=== PATIENT | male | born 1955 | race American Indian/Alaskan Native ===

== ENCOUNTER 2019-07-01 04:26 | Inpatient (IN) | payer BC ==
[2019-07-01] MEDS ORDERED: ASPIRIN PO ONE (04:35)
[2019-07-01] MEDS ORDERED: NITRO-BID 2% TP ONE (04:35)
[2019-07-01 04:55] LABS: Basophils # (Auto) 0.1 K/mm3 (0.0-0.1); Basophils % (Auto) 1.2 % (0.0-1.8); Eosinophils % (Auto) 0.5 % (0.0-4.3); Hematocrit 41.9 % (35.5-45.6); Hemoglobin 14.8 gm/dl (11.8-15.2); Lymphocytes # (Auto) 3.6 K/mm3 (1.2-5.4); Lymphocytes % (Auto) 49.3 % (13.4-35.0); Mean Corpuscular HGB Conc 35 % (32-34); Mean Corpuscular Volume 88 fl (84-94); Monocytes # (Auto) 0.6 K/mm3 (0.0-0.8); Monocytes % (Auto) 8.3 % (0.0-7.3); Platelet Count 154 K/mm3 (140-440); Red Blood Count 4.78 M/mm3 (3.65-5.03); Red Cell Distribution Width 12.9 % (13.2-15.2)
[2019-07-01 05:08] LABS: INR 1.65 (0.87-1.13)
[2019-07-01 05:09] LABS: Partial Thromboplastin Time 28.2 Sec. (24.2-36.6)
[2019-07-01 05:18] LABS: BUN/Creatinine Ratio 19; Blood Urea Nitrogen 26 mg/dL (9-20); Calcium 8.7 mg/dL (8.4-10.2); Hemolysis Index 4
--- NOTE | 2019-07-01 05:25 | Emergency Department Report ---
ED Chest Pain HPI - General Chief Complaint: Chest Pain Stated Complaint: CHEST PAIN Time Seen by Provider: 07/01/19 04:35 Source: patient, EMS Mode of arrival: Stretcher Limitations: No Limitations - History of Present Illness Initial Comments: Patient is a 64-year-old -Togolese male with past medical history of hypertension and diabetes as well as mental health issues who is presenting with chest pain. Patient currently is a patient at [facility] for suicidal ideations. Patient patient states that the pain has been present for the last several hours. Patient states the pain does not radiate. Pain is a heavy sensation in the mid chest with shortness of breath. Patient denies cough nausea vomiting diarrhea at this time. Severity scale (0 -10): 5 - Related Data Allergies Allergy/AdvReac Type Severity Reaction Status Date / Time No Known Allergies Allergy Unverified 07/01/19 04:43 Heart Score - HEART Score History: Moderately suspicious EKG: Non-specific Age: 45-65 Risk factors: 1-2 risk factors Troponin: < normal limit HEART Score: 4 ED Review of Systems ROS: Stated complaint: CHEST PAIN Other details as noted in HPI Comment: All other systems reviewed and negative ED Past Medical Hx - Past Medical History Previous Medical History?: Yes Hx Hypertension: Yes Hx Congestive Heart Failure: Yes Hx Diabetes: Yes Hx Psychiatric Treatment: Yes (DEPRESSION) - Surgical History Past Surgical History?: No - Social History Smoking Status: Current Some Day Smoker Substance Use Type: Alcohol ED Physical Exam - General Limitations: No Limitations General appearance: alert, in no apparent distress - Head Head exam: Present: atraumatic, normocephalic - Eye Eye exam: Present: normal appearance - ENT ENT exam: Present: mucous membranes moist - Neck Neck exam: Present: normal inspection - Respiratory Respiratory exam: Present: normal lung sounds bilaterally. Absent: respiratory distress, wheezes, rales, rhonchi - Cardiovascular Cardiovascular Exam: Present: regular rate, normal rhythm. Absent: systolic murmur, diastolic murmur, rubs, gallop - GI/Abdominal GI/Abdominal exam: Present: soft, normal bowel sounds. Absent: distended, tenderness, guarding, rebound - Rectal Rectal exam: Present: deferred - Extremities Exam Extremities exam: Present: normal inspection - Back Exam Back exam: Present: normal inspection - Neurological Exam Neurological exam: Present: alert, oriented X3 - Psychiatric Psychiatric exam: Present: normal affect, normal mood - Skin Skin exam: Present: warm, dry, intact, normal color. Absent: rash ED Course Vital Signs 07/01/19 07/01/19 07/01/19 04:40 04:43 04:51 Temperature 99.1 F Pulse Rate 99 H 98 H Respiratory 12 12 Rate Blood Pressure 160/89 160/87 O2 Sat by Pulse 98 98 Oximetry BRITNEY score - Britney Score Age > 65: (0) No Aspirin use within the Past 7 Days: (0) No 3 or more CAD Risk Factors: (0) No 2 or more Angina events in past 24 hrs: (1) Yes Known CAD with more than 50% Stenosis: (0) No Elevated Cardiac Markers: (0) No ST Deviation Greater than 0.5mm: (0) No BRITNEY Score: 1 ED Medical Decision Making - Lab Data Result diagrams: 07/01/19 04:44 07/01/19 04:44 Lab Results 07/01/19 07/01/19 07/01/19 Range/Units 04:44 04:44 04:44 WBC 7.2 (4.5-11.0) K/mm3 RBC 4.78 (3.65-5.03) M/mm3 Hgb 14.8 (11.8-15.2) gm/dl Hct 41.9 (35.5-45.6) % MCV 88 (84-94) fl MCH 31 (28-32) pg MCHC 35 H (32-34) % RDW 12.9 L (13.2-15.2) % Plt Count 154 (140-440) K/mm3 Lymph % (Auto) 49.3 H (13.4-35.0) % [place] % (Auto) 8.3 H (0.0-7.3) % Eos % (Auto) 0.5 (0.0-4.3) % Baso % (Auto) 1.2 (0.0-1.8) % Lymph # 3.6 (1.2-5.4) K/mm3 [place] # 0.6 (0.0-0.8) K/mm3 Eos # 0.0 (0.0-0.4) K/mm3 Baso # 0.1 (0.0-0.1) K/mm3 Seg Neutrophils % 40.7 (40.0-70.0) % Seg Neutrophils # 2.9 (1.8-7.7) K/mm3 PT 19.1 H (12.2-14.9) Sec. INR 1.65 H (0.87-1.13) APTT 28.2 (24.2-36.6) Sec. Sodium 138 (137-145) mmol/L Potassium 3.4 L (3.6-5.0) mmol/L Chloride 96.7 L (98-107) mmol/L Carbon Dioxide 24 (22-30) mmol/L Anion Gap 21 mmol/L BUN 26 H (9-20) mg/dL Creatinine 1.4 (0.8-1.5) mg/dL Estimated GFR > 60 ml/min BUN/Creatinine Ratio 19 % Glucose 218 H (75-100) mg/dL Calcium 8.7 (8.4-10.2) mg/dL Troponin T < 0.010 (0.00-0.029) ng/mL - EKG Data -: EKG Interpreted by [place] EKG shows normal: sinus rhythm, axis, intervals, QRS complexes - EKG Data Interpretation: other (patient with T-wave inversions in lateral leads. Also evidence of LVH.) - Radiology Data Ordering Physician: GUICHO PILLAI MD Date of Service: 07/01/19 Procedure(s): XR chest routine 2V Accession Number(s): [id number] cc: GUICHO PILLAI MD Fluoro Time In Minutes: CHEST 2 VIEWS INDICATION / CLINICAL INFORMATION: CP. COMPARISON: None available. FINDINGS: SUPPORT DEVICES: None. HEART / MEDIASTINUM: No significant abnormality. LUNGS / PLEURA: No significant pulmonary or pleural abnormality. No pneumothorax. ADDITIONAL FINDINGS: Multiple old healed left posterior lateral rib fractures are noted. IMPRESSION: 1. No acute findings. Signer Name: Zach Sexton MD Signed: 07/01/2019 5:18 AM - Medical Decision Making Patient is a 64-year-old -Togolese male with past medical history hypertension diabetes who presented with chest pain. Patient has a heart school for. Patient also has some EKG changes which are concerning. No EKG for comparison here in our system. Patient will be admitted to the hospitalist service at this time for further cardiac risk stratification. Critical care attestation.: If time is entered above; I have spent that time in minutes in the direct care of this critically ill patient, excluding procedure time. ED Disposition Clinical Impression: Abnormal EKG Chest pain Qualifiers: Chest pain type: unspecified Qualified Code(s): R07.9 - Chest pain, unspecified Disposition: 09 OP ADMIT IP TO THIS HOSP Is pt being admited?: Yes Does the pt Need Aspirin: No Condition: Stable Instructions: Chest Pain (ED) Time of Disposition: 05:28
[2019-07-01] MEDS ORDERED: NITROSTAT SL PRN (06:07)
[2019-07-01] MEDS ORDERED: MORPHINE IV PRN (06:07)
[2019-07-01] MEDS ORDERED: ZOFRAN IV PRN (06:08)
[2019-07-01] MEDS ORDERED: TYLENOL PO PRN (06:08)
[2019-07-01] MEDS ORDERED: D50W (25GM) Syringe IV PRN (06:18)
[2019-07-01] MEDS ORDERED: KCL 10MEQ/100ML 10 MEQ/100 ML BAG IV ONE (06:19)
--- NOTE | 2019-07-01 06:33 | History and Physical Report ---
CHIEF COMPLAINT: Chest pain. HISTORY OF PRESENT ILLNESS: The patient is a 64-year-old male who said he has been having chest pain that appeared as tightness in the chest going on for some days. The patient is currently staying at [facility] because of psychiatric illness with suicidal ideation. Chest pain does not radiate and is associated with shortness of breath, but no diaphoresis and no nausea or vomiting. Pain is relieved with pain medication. There is no history of fever or chills and no history of cough. PAST MEDICAL HISTORY: Pertinent for hypertension, diabetes mellitus, congestive heart failure, depression and suicidal ideation. PAST SURGICAL HISTORY: Unremarkable. FAMILY HISTORY: Pertinent for coronary artery disease in the brother. SOCIAL HISTORY: The patient smokes cigarettes, drinks alcohol and does not use illicit drug. MEDICATIONS: The patient's home medications are not known at this time. ALLERGIES: There are no known drug allergies. REVIEW OF SYSTEMS: CONSTITUTIONAL: There is no fever, no chills, no diaphoresis. HEENT: There is no headache or sore throat. CARDIOVASCULAR SYSTEM: Chest pain is present. No orthopnea. RESPIRATORY SYSTEM: Shortness of breath is present. No cough. GASTROINTESTINAL SYSTEM: There is no nausea, no vomiting, no abdominal pain, diarrhea or constipation. NEUROLOGICAL SYSTEM: There is no numbness, no dizziness, no altered mental status. MUSCULOSKELETAL SYSTEM: There is no joint pain or swelling. DERMATOLOGICAL SYSTEM: There is no skin rash or itching. GENITOURINARY SYSTEM: There is no dysuria, hematuria, or flank pain. Rest of system review is normal. PHYSICAL EXAMINATION: GENERAL: At the time of exam, the patient was found to be alert, oriented x 3 and not in acute distress. VITAL SIGNS: At the initial time of presentation showed temperature of 99.1 degrees Fahrenheit, pulse of 99, respirations 12, blood pressure 160/89, O2 sat of 98% on room air. HEENT: Showed pupils to be equal, round, reactive to light and accommodating. Extraocular muscles are intact. NECK: Supple with no JVD or carotid bruit. CARDIOVASCULAR SYSTEM: Showed normal first and second heart sounds with no gallops or murmurs. RESPIRATORY SYSTEM: Showed good air entry on both sides of the lungs with no abnormal breath sounds. GASTROINTESTINAL SYSTEM: Show abdomen to be full, soft, nontender with no organomegaly or rigidity. NEUROLOGIC: Shows no focal deficit. MUSCULOSKELETAL SYSTEM: Show no joint swelling or tenderness. DERMATOLOGICAL: Showed no skin rash. GENITOURINARY SYSTEM: Showing no costovertebral angle tenderness. PERTINENT LABORATORY AND IMAGING STUDIES: The patient had chest x-ray done that shows no acute cardiopulmonary lesion. The patient's lab results showed CBC with normal white count, normal hemoglobin and normal hematocrit with CBC differential showing elevated lymphocyte count of 49.3% and elevated monocyte count of 8.3%. The patient's coagulation studies show high INR of 1.65 with elevated PT of 19.1 and the patient's chemistry shows slightly decreased potassium level of 3.4 with low chloride of 96.7 with normal sodium level and elevated glucose level of 218. The patient's troponin level was unremarkable. DIAGNOSES: 1. Chest pain. 2. Hyperglycemia. 3. Hypokalemia. PLAN OF CARE: 1. The patient will be placed on observation on telemetry. 2. The patient will have serial cardiac enzyme involving troponin, total CK, and CK-MB checked every 6 hours for 2 more levels. 3. The patient will be n.p.o. for Lexiscan stress test this morning. 4. The patient will be on IV morphine 2 mg every 3 hours as needed for pain and IV Zofran 4 mg every 8 hours for nausea and vomiting. 5. The patient will be on nitro paste half inch to anterior chest wall q.i.d. and will be on Nitrostat 0.4 mg sublingual every 5 minutes for breakthrough chest pain. 6. The patient will be on aspirin 325 mg by mouth daily and will be on Tylenol 650 mg by mouth every 4 hours for fever and headache. 7. The patient will be on oxygen by nasal cannula at 2 liters per minute. 8. The patient will be on Accu-Chek q.4 hours followed by low-dose sliding scale using regular insulin coverage. 9. The patient will have IV potassium chloride 10 mEq in 100 mL of normal saline given over 1 hour. JOB# [id number] OCN/NTS MTDD
[2019-07-01] MEDS: HumuLIN R SUB-Q SCH ×5 (07:16→22:58)
[2019-07-01] MEDS ORDERED: LEXISCAN IV ONE (08:11)
[2019-07-01] MEDS: NITRO-BID 2% TP SCH ×3 (11:07→18:21)
[2019-07-01] MEDS: ASPIRIN PO SCH (11:07)
--- NOTE | 2019-07-01 12:53 | Consultation ---
History of Present Illness Consult date: 07/01/19 Consult reason: chest pain, other History of present illness: Mr. Pereyra is a 64 y/o male who presented to [facility] with non-radiating, mid-sternal chest heaviness that lasted several hours. He is currently a patient at [facility] admitted with S/I. He is unknown to our practice and has a history of chronic HFrEF, nonischemic cardiomyopathy, hypertension, diabetes and mental health issues. He was evaluated at [facility] for similar symptoms in December 2017. Initial troponin negative and EKG unremarkable. A stress test was also negative, but showed an EF of 20 percent. His last echo in 2018 found an EF of 25% with grade 2 diastolic dysfunction, mild TR, mild pulmonic insufficiency, mild aortic insufficiency and a trivial pericardial effusion. Past History Past Medical History: GERD (nonischemic cardiomyopathy), hypertension, other (Suicidal ideation) Medications and Allergies Allergies Allergy/AdvReac Type Severity Reaction Status Date / Time No Known Allergies Allergy Verified 07/01/19 06:16 Home Medications Medication Instructions Recorded Confirmed Last Taken Type Aspirin [Adult Aspirin] 81 mg PO QDAY 07/01/19 07/01/19 Unknown History Carvedilol [Coreg] 25 mg PO BID 07/01/19 07/01/19 Unknown History Haloperidol Lactate 5 mg IM Q4HR PRN 07/01/19 07/01/19 Unknown History Haloperidol [Haldol] 5 mg PO Q4HR PRN 07/01/19 07/01/19 Unknown History ISOSORBIDE MONOnitrate [Imdur ER] 60 mg PO QDAY 07/01/19 07/01/19 Unknown History Insulin Detemir [Levemir VIAL] 10 unit SQ QHS 07/01/19 07/01/19 Unknown History Lisinopril [Zestril TAB] 40 mg PO QDAY 07/01/19 07/01/19 Unknown History Quetiapine Fumarate [SEROquel XR] 150 mg PO QHS 07/01/19 07/01/19 Unknown History Spironolactone [Aldactone] 25 mg PO QDAY 07/01/19 07/01/19 Unknown History Torsemide [Demadex] 40 mg PO QDAY 07/01/19 07/01/19 Unknown History amLODIPine [Norvasc] 10 mg PO DAILY 07/01/19 07/01/19 Unknown History diphenhydrAMINE [Benadryl CAP] 50 mg PO Q4HR PRN 07/01/19 07/01/19 Unknown History diphenhydrAMINE [Benadryl] 50 mg IV PRN PRN 07/01/19 07/01/19 Unknown History hydrALAZINE [Apresoline TAB] 100 mg PO TID 07/01/19 07/01/19 Unknown History Active Meds: Active Medications Acetaminophen (Tylenol) 650 mg PO Q4H PRN PRN Reason: Headache Aspirin (Aspirin) 325 mg PO QDAY [facility] Last Admin: 07/01/19 11:07 Dose: 325 mg Documented by: Dextrose (D50w (25gm) Syringe) 50 ml IV PRN PRN PRN Reason: Hypoglycemia Insulin Human Regular (Humulin R) 0 units SUB-Q Q4HR [facility]; Protocol Last Admin: 07/01/19 11:13 Dose: 2 units Documented by: Morphine Sulfate (Morphine) 2 mg IV Q3H PRN PRN Reason: Pain, Moderate (4-6) Nitroglycerin (Nitro-Bid 2%) 0.5 inch TP QIDNTG [facility]; Protocol Last Admin: 07/01/19 11:07 Dose: 0.5 inch Documented by: Nitroglycerin (Nitrostat) 0.4 mg SL .Q5MIN PRN PRN Reason: Chest Pain Ondansetron HCl (Zofran) 4 mg IV Q8H PRN PRN Reason: Nausea And Vomiting Review of Systems All systems: negative Cardiovascular: chest pain Physical Examination Vital Signs Temp Pulse Resp BP Pulse Ox 99.1 F 99 H 12 160/89 98 07/01/19 04:40 07/01/19 04:40 07/01/19 04:40 07/01/19 04:40 07/01/19 04:40 General appearance: no acute distress HEENT: Positive: PERRL Neck: Positive: neck supple Cardiac: Positive: Reg Rate and Rhythm Lungs: Positive: Normal Exam Neuro: Positive: Grossly Intact Abdomen: Positive: Unremarkable Male genitourinary: Positive: deferred Skin: Positive: Clear Musculoskeletal: No Pain Extremities: Present: normal Results 07/01/19 04:44 07/01/19 04:44 Coagulation 07/01/19 Range/Units 04:44 PT 19.1 H (12.2-14.9) Sec. INR 1.65 H (0.87-1.13) APTT 28.2 (24.2-36.6) Sec. CBC 07/01/19 Range/Units 04:44 WBC 7.2 (4.5-11.0) K/mm3 RBC 4.78 (3.65-5.03) M/mm3 Hgb 14.8 (11.8-15.2) gm/dl Hct 41.9 (35.5-45.6) % Plt Count 154 (140-440) K/mm3 Lymph # 3.6 (1.2-5.4) K/mm3 [place] # 0.6 (0.0-0.8) K/mm3 Eos # 0.0 (0.0-0.4) K/mm3 Baso # 0.1 (0.0-0.1) K/mm3 Comprehensive Metabolic Panel 07/01/19 Range/Units 04:44 Sodium 138 (137-145) mmol/L Potassium 3.4 L (3.6-5.0) mmol/L Chloride 96.7 L (98-107) mmol/L Carbon Dioxide 24 (22-30) mmol/L BUN 26 H (9-20) mg/dL Creatinine 1.4 (0.8-1.5) mg/dL Glucose 218 H (75-100) mg/dL Calcium 8.7 (8.4-10.2) mg/dL - Imaging and Cardiology Stress echo: report reviewed (07/01/19: negative for ischemia and infarction) Echo: report reviewed (2018: EF 25%, mild aortic insufficiency, grade 2 diastolic dysfunction, mild TR, mild MR, trivial pericardial effusion ) EKG interpretations - Telemetry EKG Rhythm: Sinus Rhythm Assessment and Plan Mr. Pereyra is a 64 y/o male admitted from [facility] with chest pain. He has a history of suicidal ideation, nonischemic cardiomyopathy, hypertension and mental health issues. Will repeat echocardiogram. Per [facility] notes, was previously on GDMT for HFrEF - will hold lisinopril and diuretics for now given renal insufficiency. Continue antihypertensives and anti-ischemic therapy. Further recommendations pending hospital course. The patient was evaluated by Dr. Lucy Stern. - Patient Problems (1) Chest pain Current Visit: Yes Status: Acute Qualifiers: Chest pain type: unspecified Qualified Code(s): R07.9 - Chest pain, unspecified (2) Hypertension Current Visit: Yes Status: Chronic (3) Chronic HFrEF (heart failure with reduced ejection fraction) Current Visit: Yes Status: Chronic (4) Cardiomyopathy, nonischemic Current Visit: Yes Status: Chronic (5) Suicidal ideations Current Visit: Yes Status: Acute (6) Diabetes mellitus Current Visit: Yes Status: Chronic
[2019-07-01] MEDS ORDERED: APRESOLINE IV PRN (12:56)
[2019-07-01] MEDS ORDERED: HALDOL IM NR (13:04)
[2019-07-01 13:15] LABS: Creatine Kinase MB 1.5 ng/mL (0.0-4.0)
--- NOTE | 2019-07-01 17:21 | Event Note ---
Date: 07/01/19 64-year-old gentleman was admitted today seen and evaluated. Reviewed his laboratory radiological data. Reconciled his medications. Continue with present medication in addition to continuing with his antipsychotic medication as well as diabetic medications. We'll obtain A1c. Commence patient on sliding scale insulin. Placed on consistent carbohydrate diet. Suicidal watch for his suicidal ideations.
[2019-07-01] MEDS ORDERED: NON-FORMULARY (Torsemide [Demadex] 40 MG) PO SCH (17:30)
[2019-07-01] MEDS ORDERED: HALFPRIN EC PO SCH (18:00)
[2019-07-01] MEDS ORDERED: NORVASC PO SCH (18:00)
[2019-07-01] MEDS: IMDUR PO SCH (18:30)
[2019-07-01 18:42] LABS: Creatine Kinase MB 2.2 ng/mL (0.0-4.0)
[2019-07-01] MEDS: ALDACTONE PO SCH (20:26)
[2019-07-01] MEDS: DEMADEX PO SCH (20:27)
[2019-07-01] MEDS: ZESTRIL PO SCH (20:27)
[2019-07-01] MEDS: APRESOLINE PO SCH (20:27)
[2019-07-01] MEDS ORDERED: INSULIN DETEMIR 10 UNIT SQ SCH (22:00)
[2019-07-01] MEDS ORDERED: NON-FORMULARY (Quetiapine Fumarate [Seroquel Xr] 150 MG) PO SCH (22:00)
[2019-07-01] MEDS: LANTUS SUB-Q SCH (22:57)
[2019-07-01] MEDS: COREG PO SCH (22:57)
--- NOTE | 2019-07-01 22:57 | Treadmill Report ---
NUCLEAR STRESS TEST PROTOCOL: The patient was brought to the stress lab in a postabsorptive state, given 10 mCi of technetium-99m at rest. The patient underwent rest imaging. The patient underwent Lexiscan stress test. At peak stress, the patient was given 26 mCi of technetium-99m. Shortly thereafter, the patient underwent stress imaging. Raw imaging reveals mild GI artifact, no significant motion artifact. SPECT imaging examined carefully in horizontal long axis, vertical long axis, and short axis views. Technically difficult study, but grossly no evidence of significant fixed or reversible perfusion defects suggestive of prior infarction or ischemia. Gated wall motion reveals severe global left ventricular hypokinesis with estimated ejection fraction of 20%. CONCLUSIONS: 1. Normal myocardial perfusion scan without evidence of active ischemia or prior infarction, but severe global left ventricular hypokinesis with estimated ejection fraction 20%. Clinical correlation suggested. JOB# [id number] LAMONT/LAURA
[2019-07-02] MEDS: HumuLIN R SUB-Q SCH ×5 (02:41→21:36)
[2019-07-02 05:55] LABS: Basophils % (Auto) 0.5 % (0.0-1.8); Eosinophils # (Auto) 0.1 K/mm3 (0.0-0.4); Eosinophils % (Auto) 0.6 % (0.0-4.3); Hematocrit 42.9 % (35.5-45.6); Lymphocytes % (Auto) 48.7 % (13.4-35.0); Mean Corpuscular HGB Conc 35 % (32-34); Mean Corpuscular Volume 88 fl (84-94); Monocytes # (Auto) 0.8 K/mm3 (0.0-0.8); Monocytes % (Auto) 9.2 % (0.0-7.3); Platelet Count 169 K/mm3 (140-440); Red Blood Count 4.85 M/mm3 (3.65-5.03); Red Cell Distribution Width 13.4 % (13.2-15.2)
[2019-07-02] MEDS: NITRO-BID 2% TP SCH ×4 (06:07→17:15)
[2019-07-02 06:19] LABS: Albumin 3.4 g/dL (3.9-5); Calcium 8.6 mg/dL (8.4-10.2)
[2019-07-02] MEDS ORDERED: K-DUR PO NR (07:54)
--- NOTE | 2019-07-02 07:59 | Discharge Summary ---
Providers - Providers Date of Admission: 07/01/19 07:51 Attending physician: JERZY LANDRY MD 07/02/19 07:56 Consult to Mental Health [CONS] Routine Reason For Exam: sucidal ideation Place consult to:: mental health Primary care physician: [employer] Hospitalization Condition: Stable Disposition: [id number] PSY HOSP/PSY UNIT Time spent for discharge: 35 mins Core Measure Documentation - Palliative Care Palliative Care/ Comfort Measures: Not Applicable Exam - Constitutional Vitals: Temp Pulse Resp BP Pulse Ox 98.8 F 68 16 136/98 98 07/02/19 05:09 07/02/19 06:07 07/02/19 05:09 07/02/19 06:07 07/02/19 05:09 Plan Activity: advance as tolerated, fall precautions Diet: low fat Special Instructions: record daily BP diary, smoking cessation Follow up with: PRIMARY CARE, [Primary Care Provider] - 3-5 Days
--- NOTE | 2019-07-02 08:01 | Progress Note ---
Assessment and Plan Assessment and plan: Patient is a 64-year-old -Mold[place] male with past medical history of hypertension and diabetes as well as mental health issues who is presenting with chest pain. Patient currently is a patient at [facility] for suicidal ideations. Patient patient states that the pain has been present for the last several hours. Patient states the pain does not radiate. Pain is a heavy sensation in the mid chest with shortness of breath. Patient denies cough nausea vomiting diarrhea at this time. Stress test was negative but noted to have low EF on echo Stress echo: report reviewed (07/01/19: negative for ischemia and infarction) Echo: report reviewed (2018: EF 25%, mild aortic insufficiency, grade 2 diastolic dysfunction, mild TR, mild MR, trivial pericardial effusion ) Atypical chest pain Hypokalemia Sinus [place] Suicidal ideation CKD 3 DM with hyperglycemia Acute on chronic Systolic Congestive heart failure Cardiomyopathy-Presume non ischemic Plan Continue supportive care Cardiology will like to observe for another day due to tachycardia Continue current home medications Adjust insulin for better control Dialy weight Obtain Psych consulted DVT/GI prophy History Interval history: Patient seen and examined, No new complaints. Hospitalist Physical - Constitutional Vitals: Temp Pulse Resp BP Pulse Ox 98.8 F 68 16 136/98 98 07/02/19 05:09 07/02/19 06:07 07/02/19 05:09 07/02/19 06:07 07/02/19 05:09 General appearance: Present: no acute distress, well-nourished - EENT Eyes: Present: PERRL, EOM intact, scleral icterus ENT: hearing intact - Neck Neck: Present: supple, normal ROM - Respiratory Respiratory effort: normal Respiratory: bilateral: CTA - Cardiovascular Rhythm: regular Heart Sounds: Present: S1 & S2 (tachycardia) - Extremities Extremities: no ischemia, pulses intact, pulses symmetrical, No edema, normal temperature, normal color, Full ROM Peripheral Pulses: within normal limits - Abdominal General gastrointestinal: soft, non-tender, non-distended, normal bowel sounds - Integumentary Integumentary: Present: clear, warm, dry - Psychiatric Psychiatric: appropriate mood/affect, memory intact, cooperative - Neurologic Neurologic: CNII-XII intact, moves all extremities - Allied Health Allied health notes reviewed: nursing Results - Labs CBC & Chem 7: 07/02/19 04:31 07/02/19 04:31 Labs: Laboratory Last Values WBC 8.3 K/mm3 (4.5-11.0) 07/02/19 04:31 RBC 4.85 M/mm3 (3.65-5.03) 07/02/19 04:31 Hgb 15.0 gm/dl (11.8-15.2) 07/02/19 04:31 Hct 42.9 % (35.5-45.6) 07/02/19 04:31 MCV 88 fl (84-94) 07/02/19 04:31 MCH 31 pg (28-32) 07/02/19 04:31 MCHC 35 % (32-34) H 07/02/19 04:31 RDW 13.4 % (13.2-15.2) 07/02/19 04:31 Plt Count 169 K/mm3 (140-440) 07/02/19 04:31 Lymph % (Auto) 48.7 % (13.4-35.0) H 07/02/19 04:31 [place] % (Auto) 9.2 % (0.0-7.3) H 07/02/19 04:31 Eos % (Auto) 0.6 % (0.0-4.3) 07/02/19 04:31 Baso % (Auto) 0.5 % (0.0-1.8) 07/02/19 04:31 Lymph # 4.0 K/mm3 (1.2-5.4) 07/02/19 04:31 [place] # 0.8 K/mm3 (0.0-0.8) 07/02/19 04:31 Eos # 0.1 K/mm3 (0.0-0.4) 07/02/19 04:31 Baso # 0.0 K/mm3 (0.0-0.1) 07/02/19 04:31 Seg Neutrophils % 41.0 % (40.0-70.0) 07/02/19 04:31 Seg Neutrophils # 3.4 K/mm3 (1.8-7.7) 07/02/19 04:31 PT 19.1 Sec. (12.2-14.9) H 07/01/19 04:44 INR 1.65 (0.87-1.13) H 07/01/19 04:44 APTT 28.2 Sec. (24.2-36.6) 07/01/19 04:44 Sodium 139 mmol/L (137-145) 07/02/19 04:31 Potassium 3.4 mmol/L (3.6-5.0) L 07/02/19 04:31 Chloride 96.6 mmol/L (98-107) L 07/02/19 04:31 Carbon Dioxide 30 mmol/L (22-30) 07/02/19 04:31 16 mmol/L 07/02/19 04:31 BUN 28 mg/dL (9-20) H 07/02/19 04:31 1.5 mg/dL (0.8-1.5) 07/02/19 04:31 Estimated GFR 57 ml/min 07/02/19 04:31 19 % 07/02/19 04:31 Glucose 191 mg/dL (75-100) H 07/02/19 04:31 POC Glucose 223 (70-105) H 07/01/19 21:43 Calcium 8.6 mg/dL (8.4-10.2) 07/02/19 04:31 0.50 mg/dL (0.1-1.2) 07/02/19 04:31 AST 35 units/L (5-40) 07/02/19 04:31 ALT 70 units/L (7-56) H 07/02/19 04:31 78 units/L (35-129) 07/02/19 04:31 133 units/L (55-170) 07/01/19 17:29 CK-MB (CK-2) 2.2 ng/mL (0.0-4.0) 07/01/19 17:29 CK-MB (CK-2) Rel Index 1.6 (0-4) 07/01/19 17:29 < 0.010 ng/mL (0.00-0.029) 07/01/19 17:29 6.5 g/dL (6.3-8.2) 07/02/19 04:31 3.4 g/dL (3.9-5) L 07/02/19 04:31 1.1 % 07/02/19 04:31 Active Medications - Current Medications Current Medications: Generic Name Dose Route Start Last Admin Trade Name Freq PRN Reason Stop Dose Admin Acetaminophen 650 mg 07/01/19 06:08 Tylenol PO Q4H PRN Headache Amlodipine Besylate 10 mg 07/02/19 10:00 Norvasc PO QDAY JAJA Aspirin 325 mg 07/01/19 10:00 07/01/19 11:07 Aspirin PO 325 mg QDAY JAJA Administration Carvedilol 25 mg 07/01/19 22:00 07/01/19 22:57 Coreg PO 25 mg BID JAJA Administration Dextrose 50 ml 07/01/19 06:18 D50w (25gm) Syringe IV PRN PRN Hypoglycemia Diphenhydramine HCl 50 mg 07/01/19 17:17 Benadryl IV PRN PRN Extrapyramidal Effects Haloperidol 5 mg 07/01/19 17:17 Haldol PO Q4HR PRN Agitation Hydralazine HCl 10 mg 07/01/19 12:56 07/01/19 18:20 Apresoline IV 10 mg Q6H PRN Administration Blood Pressure Hydralazine HCl 100 mg 07/01/19 20:00 07/01/19 20:27 Apresoline PO 100 mg TID [facility] Administration Insulin Glargine 10 units 07/01/19 22:00 07/01/19 22:57 Lantus SUB-Q 10 units QHS [facility] Administration Insulin Human Regular 0 units 07/02/19 07:30 Humulin R SUB-Q ACHS [facility] Protocol Isosorbide Mononitrate 60 mg 07/01/19 18:00 07/01/19 18:30 Imdur PO 60 mg QDAY [facility] Administration Lisinopril 40 mg 07/01/19 20:00 07/01/19 20:27 Zestril PO 40 mg QDAY [facility] Administration Miscellaneous Medication 150 mg 07/01/19 22:00 Quetiapine Fumarate [Seroquel Xr] PO QHS [facility] Morphine Sulfate 2 mg 07/01/19 06:07 Morphine IV Q3H PRN Pain, Moderate (4-6) Nitroglycerin 0.5 inch 07/01/19 10:00 07/02/19 06:07 Nitro-Bid 2% TP 0.5 inch QIDNTG [facility] Administration Protocol Nitroglycerin 0.4 mg 07/01/19 06:07 Nitrostat SL .Q5MIN PRN Chest Pain Ondansetron HCl 4 mg 07/01/19 06:08 Zofran IV Q8H PRN Nausea And Vomiting Potassium Chloride 40 meq 07/02/19 07:54 K-Dur PO 07/02/19 07:55 ONCE ONE Sertraline HCl 50 mg 07/02/19 10:00 Zoloft PO QDAY JAJA Spironolactone 25 mg 07/01/19 20:00 07/01/19 20:26 Aldactone PO 25 mg QDAY JAJA Administration Torsemide 40 mg 07/01/19 20:00 07/01/19 20:27 Demadex PO 40 mg QDAY JAJA Administration
--- NOTE | 2019-07-02 10:11 | Progress Note ---
Assessment and Plan The patient's cardiac status is stable. He is tachycardic, which is secondary to severely reduced EF. Await echocardiogram - further recommendations pending results. The patient has been seen in conjunction with Dr. Lucy Stern, who agrees with the assessment and plan. - Patient Problems (1) Chest pain Current Visit: Yes Status: Acute Qualifiers: Chest pain type: unspecified Qualified Code(s): R07.9 - Chest pain, unspecified (2) Hypertension Current Visit: Yes Status: Chronic (3) Chronic HFrEF (heart failure with reduced ejection fraction) Current Visit: Yes Status: Chronic (4) Cardiomyopathy, nonischemic Current Visit: Yes Status: Chronic (5) Suicidal ideations Current Visit: Yes Status: Acute (6) Diabetes mellitus Current Visit: Yes Status: Chronic Subjective Date of service: 07/02/19 Interval history: The patient is sleeping in bed. He is in NAD. Telemetry reviewed - ST in 100s. Objective Last Vital Signs Temp 98.7 F 07/02/19 09:20 Pulse 108 H 07/02/19 09:20 Resp 20 07/02/19 09:20 BP 154/99 07/02/19 09:20 Pulse Ox 99 07/02/19 09:20 - Physical Examination General: Appears Well HEENT: Positive: PERRL Neck: Positive: neck supple Cardiac: Positive: Regular Rhythm Lungs: Positive: Normal Exam Neuro: Positive: Grossly Intact, Other (deferred) Abdomen: Positive: Unremarkable /Rectal: Other (deferred) Skin: Positive: Clear Musculoskeletal: other (deferred) Extremities: Present: normal - Labs and Meds Cardiac Enzymes 07/01/19 07/01/19 07/02/19 Range/Units 12:08 17:29 04:31 AST 35 (5-40) units/L CK-MB (CK-2) 1.5 2.2 (0.0-4.0) ng/mL CBC 07/02/19 Range/Units 04:31 WBC 8.3 (4.5-11.0) K/mm3 RBC 4.85 (3.65-5.03) M/mm3 Hgb 15.0 (11.8-15.2) gm/dl Hct 42.9 (35.5-45.6) % Plt Count 169 (140-440) K/mm3 Lymph # 4.0 (1.2-5.4) K/mm3 [place] # 0.8 (0.0-0.8) K/mm3 Eos # 0.1 (0.0-0.4) K/mm3 Baso # 0.0 (0.0-0.1) K/mm3 Comprehensive Metabolic Panel 07/02/19 Range/Units 04:31 Sodium 139 (137-145) mmol/L Potassium 3.4 L (3.6-5.0) mmol/L Chloride 96.6 L (98-107) mmol/L Carbon Dioxide 30 (22-30) mmol/L BUN 28 H (9-20) mg/dL Creatinine 1.5 (0.8-1.5) mg/dL Glucose 191 H (75-100) mg/dL Calcium 8.6 (8.4-10.2) mg/dL AST 35 (5-40) units/L ALT 70 H (7-56) units/L Alkaline Phosphatase 78 (35-129) units/L Total Protein 6.5 (6.3-8.2) g/dL Albumin 3.4 L (3.9-5) g/dL - Imaging and Cardiology Stress echo: report reviewed (07/01/19: negative for ischemia and infarction) Echo: report reviewed (2018: EF 25%, mild aortic insufficiency, grade 2 diastolic dysfunction, mild TR, mild MR, trivial pericardial effusion ) - Telemetry EKG Rhythm: Sinus Tachycardia
[2019-07-02] MEDS: ASPIRIN PO SCH (11:36)
[2019-07-02] MEDS: DEMADEX PO SCH (11:37)
[2019-07-02] MEDS: NORVASC PO SCH (11:37)
[2019-07-02] MEDS: COREG PO SCH ×2 (11:37→21:34)
[2019-07-02] MEDS: ZESTRIL PO SCH (11:37)
[2019-07-02] MEDS: ZOLOFT PO SCH (11:38)
[2019-07-02] MEDS: IMDUR PO SCH (11:38)
[2019-07-02] MEDS: ALDACTONE PO SCH (11:38)
[2019-07-02] MEDS: APRESOLINE PO SCH ×3 (11:39→21:35)
[2019-07-02] MEDS: LANTUS SUB-Q SCH (21:36)
[2019-07-03] MEDS: NITRO-BID 2% TP SCH ×4 (05:51→17:06)
[2019-07-03] MEDS: HEPARIN SUB-Q SCH ×3 (05:51→22:01)
[2019-07-03] MEDS: HumuLIN R SUB-Q SCH ×4 (07:30→22:01)
[2019-07-03] MEDS: APRESOLINE PO SCH ×3 (08:00→21:30)
[2019-07-03] MEDS: ALDACTONE PO SCH (09:15)
[2019-07-03] MEDS: IMDUR PO SCH (09:16)
[2019-07-03] MEDS: NORVASC PO SCH (09:16)
[2019-07-03] MEDS: ASPIRIN PO SCH (09:16)
[2019-07-03] MEDS: DEMADEX PO SCH (09:16)
[2019-07-03] MEDS: COREG PO SCH ×2 (09:16→22:00)
[2019-07-03] MEDS: ZESTRIL PO SCH (09:17)
[2019-07-03] MEDS: ZOLOFT PO SCH (09:17)
--- NOTE | 2019-07-03 10:05 | Progress Note ---
Assessment and Plan The patient's cardiac status is stable. Continue current cardiac management. The patient has been seen in conjunction with Dr. Lucy Stern, who agrees with assessment and plan. - Patient Problems (1) Chest pain Current Visit: Yes Status: Acute Qualifiers: Chest pain type: unspecified Qualified Code(s): R07.9 - Chest pain, unspecified (2) Hypertension Current Visit: Yes Status: Chronic (3) Chronic HFrEF (heart failure with reduced ejection fraction) Current Visit: Yes Status: Chronic (4) Cardiomyopathy, nonischemic Current Visit: Yes Status: Chronic (5) Suicidal ideations Current Visit: Yes Status: Acute (6) Diabetes mellitus Current Visit: Yes Status: Chronic Subjective Date of service: 07/03/19 Interval history: Patient is lying in bed in NAD. He does not open eyes for exam, but answers questions. He denies CP and SOB. Per bedside sitter, he is refusing medication and telemetry monitoring. Telemetry reviewed - SR/ST in 90s to 100s. Objective Last Vital Signs Temp 98.2 F 07/03/19 07:23 Pulse 95 H 07/03/19 07:23 Resp 20 07/03/19 07:23 BP 135/71 07/03/19 07:23 Pulse Ox 100 07/03/19 07:23 - Physical Examination General: Appears Well, No Apparent Distress HEENT: Positive: PERRL Neck: Positive: neck supple Cardiac: Positive: Reg Rate and Rhythm Lungs: Positive: Normal Exam Neuro: Positive: Grossly Intact, Other (deferred) Abdomen: Positive: Unremarkable /Rectal: Other (deferred) Skin: Positive: Clear Musculoskeletal: Normal Range of Motion Extremities: Present: normal - Imaging and Cardiology Stress echo: report reviewed (07/01/19: negative for ischemia and infarction) Echo: report reviewed (2018: EF 25%, mild aortic insufficiency, grade 2 diastolic dysfunction, mild TR, mild MR, trivial pericardial effusion )
--- NOTE | 2019-07-03 12:40 | Consultation ---
History of Present Illness - Reason for Consult Consult date: 07/03/19 Reason for consult: Mental Health Evaluation Requesting physician: JERZY LANDRY - Chief Complaint Chief complaint: "The patient is uncooperative" - History of Present Psychiatric Illness 64-year-old -[place]ombian male who presented to the hospital from [facility] for chest pain. Per the record, he was a patient at [place] for SI's. Today the patient was calm, but uncooperative during the assessment. He would not answer most questions asked of him. Several attempted was made to engage the patient, but was unsuccessful. Will attempt to reassess the patient in 24 hours. Medications and Allergies Allergies Allergy/AdvReac Type Severity Reaction Status Date / Time No Known Allergies Allergy Verified 07/01/19 06:16 Home Medications Medication Instructions Recorded Confirmed Last Taken Type Aspirin [Adult Aspirin] 81 mg PO QDAY 07/01/19 07/01/19 Unknown History Carvedilol [Coreg] 25 mg PO BID 07/01/19 07/01/19 Unknown History Haloperidol Lactate 5 mg IM Q4HR PRN 07/01/19 07/01/19 Unknown History Haloperidol [Haldol] 5 mg PO Q4HR PRN 07/01/19 07/01/19 Unknown History ISOSORBIDE MONOnitrate [Imdur ER] 60 mg PO QDAY 07/01/19 07/01/19 Unknown History Insulin Detemir [Levemir VIAL] 10 unit SQ QHS 07/01/19 07/01/19 Unknown History Lisinopril [Zestril TAB] 40 mg PO QDAY 07/01/19 07/01/19 Unknown History Quetiapine Fumarate [SEROquel XR] 150 mg PO QHS 07/01/19 07/01/19 Unknown History Spironolactone [Aldactone] 25 mg PO QDAY 07/01/19 07/01/19 Unknown History Torsemide [Demadex] 40 mg PO QDAY 07/01/19 07/01/19 Unknown History amLODIPine [Norvasc] 10 mg PO DAILY 07/01/19 07/01/19 Unknown History diphenhydrAMINE [Benadryl CAP] 50 mg PO Q4HR PRN 07/01/19 07/01/19 Unknown History diphenhydrAMINE [Benadryl] 50 mg IV PRN PRN 07/01/19 07/01/19 Unknown History hydrALAZINE [Apresoline TAB] 100 mg PO TID 07/01/19 07/01/19 Unknown History Active Meds: Active Medications Acetaminophen (Tylenol) 650 mg PO Q4H PRN PRN Reason: Headache Amlodipine Besylate (Norvasc) 10 mg PO QDAY [facility] Last Admin: 07/03/19 09:16 Dose: Not Given Documented by: Aspirin (Aspirin) 325 mg PO QDAY [facility] Last Admin: 07/03/19 09:16 Dose: Not Given Documented by: Carvedilol (Coreg) 25 mg PO BID [facility] Last Admin: 07/03/19 09:16 Dose: Not Given Documented by: Dextrose (D50w (25gm) Syringe) 50 ml IV PRN PRN PRN Reason: Hypoglycemia Diphenhydramine HCl (Benadryl) 50 mg IV PRN PRN PRN Reason: Extrapyramidal Effects Haloperidol (Haldol) 5 mg PO Q4HR PRN PRN Reason: Agitation Heparin Sodium (Porcine) (Heparin) 5,000 unit SUB-Q Q8HR [facility] Last Admin: 07/03/19 05:51 Dose: 5,000 unit Documented by: Hydralazine HCl (Apresoline) 10 mg IV Q6H PRN PRN Reason: Blood Pressure Last Admin: 07/01/19 18:20 Dose: 10 mg Documented by: Hydralazine HCl (Apresoline) 100 mg PO TID [facility] Last Admin: 07/03/19 08:00 Dose: Not Given Documented by: Insulin [facility]) [facility] Admin: 07/02/19 21:36 Dose: 10 units Documented by: Insulin Human Regular (Humulin R) 0 units SUB-Q [facility]; Protocol Last Admin: 07/03/19 12:16 Dose: 2 units Documented by: Isosorbide Mononitrate (Imdur) 60 mg PO QDAY [facility] Last Admin: 07/03/19 09:16 Dose: Not Given Documented by: Lisinopril (Zestril) 40 mg PO QDAY [facility] Last Admin: 07/03/19 09:17 Dose: Not Given Documented by: Miscellaneous Medication (Quetiapine Fumarate [Seroquel Xr]) 150 mg PO QHS [facility] Morphine Sulfate (Morphine) 2 mg IV Q3H PRN PRN Reason: Pain, Moderate (4-6) Nitroglycerin (Nitro-Bid 2%) 0.5 inch TP QIDNTG [facility]; Protocol Last Admin: 07/03/19 09:16 Dose: Not Given Documented by: Nitroglycerin (Nitrostat) 0.4 mg SL .Q5MIN PRN PRN Reason: Chest Pain Ondansetron HCl (Zofran) 4 mg IV Q8H PRN PRN Reason: Nausea And Vomiting Sertraline HCl (Zoloft) 50 mg PO QDAY [facility] Last Admin: 07/03/19 09:17 Dose: Not Given Documented by: Spironolactone (Aldactone) 25 mg PO QDAY [facility] Last Admin: 07/03/19 09:15 Dose: Not Given Documented by: Torsemide (Demadex) 40 mg PO QDAY [facility] Last Admin: 07/03/19 09:16 Dose: Not Given Documented by: Past psychiatric history - Past Medical History Past Medical History: other (Unable to obtain ) Past Surgical History: Other (Unable to obtain ) - past Psychiatric treatment and history psychiatric treatment history: The patient was transferred from [place]. unable to obtain a [facility] hx. - Social History Social history: other (Unable to obtain ) Mental Status Exam - Vital signs Last Vital Signs Temp 98.2 F 07/03/19 07:23 Pulse 95 H 07/03/19 10:00 Resp 20 07/03/19 10:00 BP 135/71 07/03/19 07:23 Pulse Ox 100 07/03/19 10:00 - Exam Narrative exam: MSE: Appearance: in hospital attire Behavior: poor eye contact Speech: regular rate and tone Mood: unable to assess Affect: flat Thought Process: unable to assess Thought Content: unable to assess Motor Activity: laying in bed Cognition: A/O x3 Insight: unable to assess Judgment: unable to assess Results Result Diagrams: 07/02/19 04:31 07/02/19 04:31 Abnormal lab results 07/02/19 07/02/19 07/03/19 Range/Units 17:12 20:03 08:38 POC Glucose 182 H 189 H 150 H (70-105) 07/03/19 Range/Units 11:10 POC Glucose 225 H (70-105) All other labs normal. Assessment and Plan Assessment and plan: Impression: Today the patient was calm, but guarded during the assessment. Per the record, the patient was [facility] Recommendation/Plan: Initiate 1013. The patient was transferred on a 1013 to [facility] from [place]. Once the transfer is complete, the 1013 isn't active. Atte mpt to reassess the patient in 24 hours. Dispo: Once the patient is reassessed, proper dispo will be determined. Staffed with Dr. Tammi Gibson. Will staff with Dr Tammi Gibson.
[2019-07-03] MEDS: BENADRYL IV PRN (22:00)
[2019-07-03] MEDS: LANTUS SUB-Q SCH (22:23)
[2019-07-04 03:02] LABS: Color,Urine Yellow (Yellow)
[2019-07-04 03:03] LABS: Bacteria,Urine 1+ /HPF (Negative); Bilirubin,Urine NEG (Negative); Blood,Urine NEG (Negative); Urobilinogen,Urine < 2.0 mg/dL (<2.0); WBC,Urine < 1.0 /HPF (0.0-6.0)
[2019-07-04 03:07] LABS: Amphetamine Screen,Urine PRESUMPTIVE NEGATIVE; Benzodiazepines Screen,Urine PRESUMPTIVE NEGATIVE; Cannabinoid Screen,Urine PRESUMPTIVE NEGATIVE; Cocaine Screen,Urine PRESUMPTIVE NEGATIVE; Methadone Screen,Urine PRESUMPTIVE NEGATIVE; Opiate Screen,Urine PRESUMPTIVE NEGATIVE
[2019-07-04] MEDS: NITRO-BID 2% TP SCH ×4 (06:11→17:18)
[2019-07-04] MEDS: HEPARIN SUB-Q SCH ×3 (06:12→21:35)
--- NOTE | 2019-07-04 07:53 | Progress Note ---
Assessment and Plan Stress echo: report reviewed (07/01/19: negative for ischemia and infarction) Echo: report reviewed (2018: EF 25%, mild aortic insufficiency, grade 2 diastolic dysfunction, mild TR, mild MR, trivial pericardial effusion ) Atypical chest pain CHF exacerbation Hypokalemia Sinus [place] Suicidal ideation CKD 3 DM with hyperglycemia Acute on chronic Systolic Congestive heart failure Cardiomyopathy-Presume non ischemic Plan Continue supportive care Cardiology will like to observe for another day due to tachycardia Continue current home medications Adjust insulin for better control Dialy weight Obtain Psych consulted DVT/GI prophy Will discharge if cleared by MH back to [place] after optimizing meds for CHF -new onset Subjective Date of service: 07/03/19 Principal diagnosis: Chest pain/CHF exacerbation Interval history: Patient is a 64-year-old -Vietnamese male with past medical history of hypertension and diabetes as well as mental health issues who is presenting with chest pain. Patient currently is a patient at [place] [facility] for suicidal ideations. Patient patient states that the pain has been present for the last several hours. Patient states the pain does not radiate. Pain is a heavy sensation in the mid chest with shortness of breath. Patient denies cough nausea vomiting diarrhea at this time. Stress test was negative but noted to have low EF on echo. Objective - Constitutional Vitals: Vital Signs - 12hr 07/03/19 07/03/19 07/04/19 21:45 22:00 04:30 Temperature 98.4 F Pulse Rate 96 H 80 Pulse Rate [ 96 H Apical] Pulse Rate [ 96 H Right Radial] Respiratory 20 18 Rate Blood Pressure 161/84 Blood Pressure 143/84 [Left] O2 Sat by Pulse 98 98 98 Oximetry General appearance: Present: no acute distress, well-nourished - EENT Eyes: PERRL, EOM intact ENT: hearing intact, clear oral mucosa Ears: bilateral: normal - Neck Neck: supple, normal ROM - Respiratory Respiratory effort: normal Respiratory: bilateral: CTA - Breasts Breasts: normal - Cardiovascular Rhythm: regular Heart Sounds: Present: S1 & S2. Absent: gallop, rub Extremities: pulses intact, No edema, normal color, Full ROM - Gastrointestinal General gastrointestinal: Present: soft, non-tender, non-distended, normal bowel sounds - Genitourinary Male genitourinary: normal - Integumentary Integumentary: clear, warm, dry - Musculoskeletal Musculoskeletal: 1, strength equal bilaterally - Neurologic Neurologic: moves all extremities - Psychiatric Psychiatric: memory intact, appropriate mood/affect, intact judgment & insight - Labs CBC & Chem 7: 07/02/19 04:31 07/02/19 04:31 Labs: Abnormal lab results 07/03/19 07/03/19 07/03/19 Range/Units 08:38 11:10 16:46 POC Glucose 150 H 225 H 316 H (70-105) 07/03/19 Range/Units 21:02 POC Glucose 177 H (70-105)
[2019-07-04] MEDS: HumuLIN R SUB-Q SCH ×4 (08:46→21:35)
[2019-07-04] MEDS: APRESOLINE PO SCH ×3 (08:47→21:35)
[2019-07-04] MEDS: COREG PO SCH ×2 (10:20→21:34)
[2019-07-04] MEDS: IMDUR PO SCH (10:20)
[2019-07-04] MEDS: ASPIRIN PO SCH (10:20)
[2019-07-04] MEDS: ALDACTONE PO SCH (10:20)
[2019-07-04] MEDS: DEMADEX PO SCH (10:20)
[2019-07-04] MEDS: NORVASC PO SCH (10:20)
[2019-07-04] MEDS: ZESTRIL PO SCH (10:21)
[2019-07-04] MEDS: ZOLOFT PO SCH (10:21)
--- NOTE | 2019-07-04 11:22 | Progress Note ---
Subjective - Reason for Consult Consult date: 07/04/19 Reason for consult: Psychiatry Follow-up - Chief Complaint Chief complaint: "I'm good" 64-year-old -[place] male who presented to the hospital from [facility] for chest pain. Per the record, he was a patient at [facility] for SI's. Today the patient was calm, but still somewhat uncooperative during the assessment. He stated that he only went to [facility] for alcohol abuse. He would not answer anymore questions asked of him. No gestures of SI/HI's. Mental Status Exam - Vital signs Last Vital Signs Temp 98.8 F 07/04/19 07:55 Pulse 93 H 07/04/19 10:20 Resp 18 07/04/19 07:55 BP 148/88 07/04/19 10:20 Pulse Ox 97 07/04/19 08:02 - Exam Narrative exam: MSE: Appearance: in hospital attire Behavior: poor eye contact Speech: regular rate and tone Mood: guarded Affect: flat Thought Process: unable to assess Thought Content: unable to assess Motor Activity: laying in bed Cognition: A/O x3 Insight: unable to assess Judgment: unable to assess Assessment and Plan Impression: Unspecified Mood DO. Today the patient was calm, but guarded during the assessment. Per the record, [facility]: MDD, R/O Bipolar DO Recommendation/Plan: Continue 1013 and obtain collateral information. Zoloft 50 mg Po daily for depression. Attempted to discuss suicidality/medication induced fish with the patient. Dispo: The patient will be referred to inpatient psy services once medically clear. Will staff with Dr Tammi Gibson.
--- NOTE | 2019-07-04 15:19 | Progress Note ---
Assessment and Plan Stress echo: report reviewed (07/01/19: negative for ischemia and infarction) Echo: report reviewed (2018: EF 25%, mild aortic insufficiency, grade 2 diastolic dysfunction, mild TR, mild MR, trivial pericardial effusion ) Atypical chest pain CHF exacerbation Hypokalemia Sinus [place] Suicidal ideation CKD 3 DM with hyperglycemia Acute on chronic Systolic Congestive heart failure Cardiomyopathy-Presume non ischemic Plan Continue supportive care Cardiology will like to observe for another day due to tachycardia Continue current home medications Adjust insulin for better control Dialy weight Psych consult--appreciated DVT/GI prophy Will discharge if cleared by MH back to [facility] after optimizing meds for CHF -new onset Check ECHO for Ef for accuracy EF on Perfusion stress test is 20 percent Started on Lasix 40 mg IV q24 Disposition Medically stable to go to psych facility D/w Obi Smyth and informed him about patient being medically cleared for discharge to psych facility Subjective Date of service: 07/04/19 Principal diagnosis: Chest pain/CHF exacerbation Interval history: Patient is a 64-year-old -German male with past medical history of hypertension and diabetes as well as mental health issues who is presenting with chest pain. Patient currently is a patient at [facility] for suicidal ideations. Patient patient states that the pain has been present for the last several hours. Patient states the pain does not radiate. Pain is a heavy sensation in the mid chest with shortness of breath. Patient denies cough nausea vomiting diarrhea at this time. Stress test was negative but noted to have low EF on echo. Objective - Constitutional Vitals: Vital Signs - 12hr 07/04/19 07/04/19 07/04/19 04:30 07:55 08:02 Temperature 98.4 F 98.8 F Pulse Rate 80 88 Respiratory 18 18 Rate Blood Pressure 133/73 Blood Pressure 143/84 [Left] O2 Sat by Pulse 98 97 97 Oximetry 07/04/19 07/04/19 07/04/19 10:12 10:19 10:20 Temperature Pulse Rate 93 H 93 H Respiratory Rate Blood Pressure 148/88 148/88 148/88 Blood Pressure [Left] O2 Sat by Pulse Oximetry 07/04/19 07/04/19 12:05 14:22 Temperature 98.4 F Pulse Rate 97 H 94 H Respiratory 18 Rate Blood Pressure 149/92 152/89 Blood Pressure [Left] O2 Sat by Pulse 98 Oximetry General appearance: Present: no acute distress, well-nourished - EENT Eyes: PERRL, EOM intact ENT: hearing intact, clear oral mucosa Ears: bilateral: normal - Neck Neck: supple, normal ROM - Respiratory Respiratory effort: normal Respiratory: bilateral: CTA - Breasts Breasts: normal - Cardiovascular Heart rate: 78 Rhythm: regular Heart Sounds: Present: S1 & S2. Absent: gallop, rub Extremities: pulses intact, No edema, normal color, Full ROM - Gastrointestinal General gastrointestinal: Present: soft, non-tender, non-distended, normal bowel sounds - Genitourinary Male genitourinary: normal - Integumentary Integumentary: clear, warm, dry - Musculoskeletal Musculoskeletal: 1, strength equal bilaterally - Neurologic Neurologic: moves all extremities - Psychiatric Psychiatric: memory intact, depressed, other - Labs CBC & Chem 7: 07/02/19 04:31 07/02/19 04:31 Labs: Abnormal lab results 07/03/19 07/03/19 07/04/19 Range/Units 16:46 21:02 08:45 POC Glucose 316 H 177 H 145 H (70-105) 07/04/19 Range/Units 12:06 POC Glucose 213 H (70-105)
[2019-07-04] MEDS ORDERED: K-DUR PO ONE ×2 (15:20→17:25)
[2019-07-04] MEDS ORDERED: KCL 10MEQ/100ML 10 MEQ/100 ML BAG IV SCH (17:00)
[2019-07-04] MEDS: LANTUS SUB-Q SCH (21:36)
[2019-07-04] MEDS: BENADRYL IV PRN (22:36)
[2019-07-04] MEDS: HALDOL PO PRN (22:36)
[2019-07-05] MEDS ORDERED: AMBIEN PO PRN (00:45)
[2019-07-05 04:42] LABS: Hematocrit 43.5 % (35.5-45.6); Hemoglobin 15.1 gm/dl (11.8-15.2); Mean Corpuscular HGB Conc 35 % (32-34); Mean Corpuscular Volume 89 fl (84-94); Platelet Count 165 K/mm3 (140-440); Red Cell Distribution Width 13.5 % (13.2-15.2)
[2019-07-05] MEDS: HEPARIN SUB-Q SCH ×3 (05:05→22:16)
[2019-07-05 05:07] LABS: Alanine Aminotransferase 49 units/L (7-56); Albumin 3.3 g/dL (3.9-5); BUN/Creatinine Ratio 18; Blood Urea Nitrogen 23 mg/dL (9-20); Calcium 8.8 mg/dL (8.4-10.2); Hemolysis Index 8
[2019-07-05] MEDS ORDERED: LASIX IV SCH (06:00)
[2019-07-05] MEDS: NITRO-BID 2% TP SCH ×4 (06:09→18:01)
[2019-07-05 06:42] LABS: Basophils % (Manual) 0 % (0.0-1.8); Eosinophils % (Manual) 0 % (0.0-4.3); Total Cells Counted 100
[2019-07-05 06:43] LABS: Platelet Estimate Consistent w Auto; RBC Morphology Normal
[2019-07-05] MEDS: HumuLIN R SUB-Q SCH ×4 (07:30→22:49)
[2019-07-05] MEDS: K-DUR PO SCH (09:01)
[2019-07-05] MEDS: DEMADEX PO SCH (09:01)
[2019-07-05] MEDS: IMDUR PO SCH (09:01)
[2019-07-05] MEDS: ALDACTONE PO SCH (09:02)
[2019-07-05] MEDS: COREG PO SCH ×2 (09:02→22:16)
[2019-07-05] MEDS: NORVASC PO SCH (09:02)
[2019-07-05] MEDS: ZOLOFT PO SCH (09:03)
[2019-07-05] MEDS: ZESTRIL PO SCH (09:03)
[2019-07-05] MEDS: ASPIRIN PO SCH (09:03)
[2019-07-05] MEDS: APRESOLINE PO SCH ×3 (09:03→20:00)
[2019-07-05] MEDS: HALDOL PO PRN (09:43)
--- NOTE | 2019-07-05 11:26 | Progress Note ---
Subjective - Reason for Consult Consult date: 07/05/19 Reason for consult: Psychiatric Follow-up Evaluation - Chief Complaint Chief complaint: " I feel so so." Patient is a 64-year-old -Maur[place] male who presented to the hospital from [facility] for chest pain. Per the record, he was a patient at [facility] for SI's. Today the patient is calm and cooperative during the assessment. Presents less irritable and more cooperative today. He reports poor sleep and appropriate appetite. Patient rates depression 5/10, with 10 being the worse. He denies SI/HI's, A/VH's, and delusions. Reports medication compliance. No side effects noted/reported. Mental Status Exam - Vital signs Last Vital Signs Temp 98.6 F 07/05/19 05:46 Pulse 92 H 07/05/19 09:06 Resp 18 07/05/19 05:46 BP 142/75 07/05/19 09:06 Pulse Ox 97 07/05/19 05:46 - Exam Narrative exam: Mental Status Exam Appearance: in hospital gown, cooperative Behavior: intermittent eye contact , less guarded Speech: regular rate and tone Mood: " so so "; depressed Affect: flat Thought Process: logical Thought Content: denies SI/HI's, A/VH's, and delusions Motor Activity: ambulatory Cognition: A/O x 3 Insight: variable Judgment: variable Assessment and Plan Impression: Unspecified Mood DO. Today the patient is calm and cooperative. Per the record, [facility] DDx: MDD, R/O Bipolar DO Recommendation/Plan: 1. Continue 1013 and obtain collateral information. 2. Continue Zoloft 50 mg po daily for depression. Attempted to discuss suicidality/medication induced fish with the patient. 3. At home patient is compliant with Seroquel 100mg po QHS- per patient . Will restart Seroquel 100mg po QHS mood. Discussed metabolic side effects. Patient verbalizes understanding. Disposition: The patient will be referred to inpatient psychiatric services once medically clear. Will staff with Dr. Tammi Gibson.
--- NOTE | 2019-07-05 12:33 | Progress Note ---
Assessment and Plan Assessment and plan: Stress echo: report reviewed (07/01/19: negative for ischemia and infarction) Echo: report reviewed (2018: EF 25%, mild aortic insufficiency, grade 2 diast olic dysfunction, mild TR, mild MR, trivial pericardial effusion ) Atypical chest pain CHF exacerbation Hypokalemia Sinus [place] Suicidal ideation CKD 3 DM with hyperglycemia Acute on chronic Systolic Congestive heart failure Cardiomyopathy-Presume non ischemic Plan Continue supportive care Cardiology will like to observe for another day due to tachycardia Continue current home medications Adjust insulin for better control Dialy weight Psych consult--appreciated DVT/GI prophy Will discharge if cleared by MH back to [facility] after optimizing meds for CHF -new onset Check ECHO for Ef for accuracy EF on Perfusion stress test is 20 percent Started on Lasix 40 mg IV q24 Disposition Medically stable to go to psych facility D/w Obi Smyth and informed him about patient being medically cleared for discharge to psych facility Subjective Date of service: 07/04/19 Principal diagnosis: Chest pain/CHF exacerbation Interval history: Patient is a 64-year-old -Egyptian male with past medical history of hypertension and diabetes as well as mental health issues who is presenting with chest pain. Patient currently is a patient at [facility] for suicidal ideations. Patient patient states that the pain has been present for the last several hours. Patient states the pain does not radiate. Pain is a heavy sensation in the mid chest with shortness of breath. Patient denies cough [place] vomiting diarrhea at this time. Stress test was negative but noted to have low EF on echo. Hospitalist Physical - Constitutional Vitals: Temp Pulse Resp BP Pulse Ox 98.7 F 92 H 18 98/53 93 07/05/19 11:22 07/05/19 11:22 07/05/19 11:22 07/05/19 11:22 07/05/19 11:22 General appearance: Present: no acute distress, well-nourished Results - Labs CBC & Chem 7: 07/05/19 04:16 07/05/19 04:16 Labs: Laboratory Last Values WBC 6.2 K/mm3 (4.5-11.0) 07/05/19 04:16 RBC 4.90 M/mm3 (3.65-5.03) 07/05/19 04:16 Hgb 15.1 gm/dl (11.8-15.2) 07/05/19 04:16 Hct 43.5 % (35.5-45.6) 07/05/19 04:16 MCV 89 fl (84-94) 07/05/19 04:16 MCH 31 pg (28-32) 07/05/19 04:16 MCHC 35 % (32-34) H 07/05/19 04:16 RDW 13.5 % (13.2-15.2) 07/05/19 04:16 Plt Count 165 K/mm3 (140-440) 07/05/19 04:16 Lymph % (Auto) [employer] 07/05/19 04:16 [place] % (Auto) 9.2 % (0.0-7.3) H 07/02/19 04:31 Eos % (Auto) 0.6 % (0.0-4.3) 07/02/19 04:31 Baso % (Auto) 0.5 % (0.0-1.8) 07/02/19 04:31 Lymph # 4.0 K/mm3 (1.2-5.4) 07/02/19 04:31 [place] # 0.8 K/mm3 (0.0-0.8) 07/02/19 04:31 Eos # 0.1 K/mm3 (0.0-0.4) 07/02/19 04:31 Baso # 0.0 K/mm3 (0.0-0.1) 07/02/19 04:31 Add Manual Diff Complete 07/05/19 04:16 Total Counted 100 07/05/19 04:16 Seg Neutrophils % [employer] 07/05/19 04:16 Seg Neuts % (Manual) 23.0 % (40.0-70.0) L 07/05/19 04:16 0 % 07/05/19 04:16 70.0 % (13.4-35.0) H 07/05/19 04:16 Reactive Lymphs % (Man) 0 % 07/05/19 04:16 7.0 % (0.0-7.3) 07/05/19 04:16 0 % (0.0-4.3) 07/05/19 04:16 0 % (0.0-1.8) 07/05/19 04:16 0 % 07/05/19 04:16 0 % 07/05/19 04:16 0 % 07/05/19 04:16 0 % 07/05/19 04:16 Nucleated RBC % Not Reportable 07/05/19 04:16 Seg Neutrophils # 3.4 K/mm3 (1.8-7.7) 07/02/19 04:31 Seg Neutrophils # Man 1.4 K/mm3 (1.8-7.7) L 07/05/19 04:16 Band Neutrophils # 0.0 K/mm3 07/05/19 04:16 4.3 K/mm3 (1.2-5.4) 07/05/19 04:16 Abs React Lymphs (Man) 0.0 K/mm3 07/05/19 04:16 0.4 K/mm3 (0.0-0.8) 07/05/19 04:16 0.0 K/mm3 (0.0-0.4) 07/05/19 04:16 0.0 K/mm3 (0.0-0.1) 07/05/19 04:16 0.0 K/mm3 07/05/19 04:16 0.0 K/mm3 07/05/19 04:16 0.0 K/mm3 07/05/19 04:16 Blast Cells # 0.0 K/mm3 07/05/19 04:16 WBC Morphology Not Reportable 07/05/19 04:16 Hypersegmented Neuts Not Reportable 07/05/19 04:16 Hyposegmented Neuts Not Reportable 07/05/19 04:16 Hypogranular Neuts Not Reportable 07/05/19 04:16 Not Reportable 07/05/19 04:16 Not Reportable 07/05/19 04:16 Not Reportable 07/05/19 04:16 Not Reportable 07/05/19 04:16 Not Reportable 07/05/19 04:16 Not Reportable 07/05/19 04:16 Consistent w auto 07/05/19 04:16 Not Reportable 07/05/19 04:16 Plt Clumps, EDTA Not Reportable 07/05/19 04:16 Not Reportable 07/05/19 04:16 Not Reportable 07/05/19 04:16 Not Reportable 07/05/19 04:16 Plt Morphology Comment Not Reportable 07/05/19 04:16 RBC Morphology Normal 07/05/19 04:16 Dimorphic RBCs Not Reportable 07/05/19 04:16 Not Reportable 07/05/19 04:16 Not Reportable 07/05/19 04:16 Not Reportable 07/05/19 04:16 Not Reportable 07/05/19 04:16 Not Reportable 07/05/19 04:16 Not Reportable 07/05/19 04:16 Not Reportable 07/05/19 04:16 Not Reportable 07/05/19 04:16 Not Reportable 07/05/19 04:16 Not Reportable 07/05/19 04:16 Not Reportable 07/05/19 04:16 Not Reportable 07/05/19 04:16 Not Reportable 07/05/19 04:16 Not Reportable 07/05/19 04:16 Not Reportable 07/05/19 04:16 Not Reportable 07/05/19 04:16 Not Reportable 07/05/19 04:16 Not Reportable 07/05/19 04:16 Not Reportable 07/05/19 04:16 Acanthocytes (Spur) Not Reportable 07/05/19 04:16 Rouleaux Not Reportable 07/05/19 04:16 Not Reportable 07/05/19 04:16 Not Reportable 07/05/19 04:16 Not Reportable 07/05/19 04:16 Not Reportable 07/05/19 04:16 Hem Pathologist Commnt No 07/05/19 04:16 PT 19.1 Sec. (12.2-14.9) H 07/01/19 04:44 INR 1.65 (0.87-1.13) H 07/01/19 04:44 APTT 28.2 Sec. (24.2-36.6) 07/01/19 04:44 Sodium 137 mmol/L (137-145) 07/05/19 04:16 Potassium 3.4 mmol/L (3.6-5.0) L 07/05/19 04:16 Chloride 97.1 mmol/L (98-107) L 07/05/19 04:16 Carbon Dioxide 26 mmol/L (22-30) 07/05/19 04:16 17 mmol/L 07/05/19 04:16 BUN 23 mg/dL (9-20) H 07/05/19 04:16 1.3 mg/dL (0.8-1.5) 07/05/19 04:16 Estimated GFR > 60 ml/min 07/05/19 04:16 18 % 07/05/19 04:16 Glucose 159 mg/dL (75-100) H 07/05/19 04:16 POC Glucose 258 (70-105) H 07/05/19 08:44 Calcium 8.8 mg/dL (8.4-10.2) 07/05/19 04:16 0.50 mg/dL (0.1-1.2) 07/05/19 04:16 AST 27 units/L (5-40) 07/05/19 04:16 ALT 49 units/L (7-56) 07/05/19 04:16 71 units/L (35-129) 07/05/19 04:16 133 units/L (55-170) 07/01/19 17:29 CK-MB (CK-2) 2.2 ng/mL (0.0-4.0) 07/01/19 17:29 CK-MB (CK-2) Rel Index 1.6 (0-4) 07/01/19 17:29 < 0.010 ng/mL (0.00-0.029) 07/01/19 17:29 6.2 g/dL (6.3-8.2) L 07/05/19 04:16 3.3 g/dL (3.9-5) L 07/05/19 04:16 1.1 % 07/05/19 04:16 Yellow (Yellow) 07/03/19 20:15 Cloudy (Clear) 07/03/19 20:15 5.0 (5.0-7.0) 07/03/19 20:15 Ur Specific [facility] 1.019 (1.003-1.030) 07/03/19 20:15 100 mg/dl mg/dL (Negative) 07/03/19 20:15 50 mg/dL (Negative) 07/03/19 20:15 Neg mg/dL (Negative) 07/03/19 20:15 Neg (Negative) 07/03/19 20:15 Neg (Negative) 07/03/19 20:15 Neg (Negative) 07/03/19 20:15 < 2.0 mg/dL (<2.0) 07/03/19 20:15 Ur Leukocyte Esterase Neg (Negative) 07/03/19 20:15 < 1.0 /HPF (0.0-6.0) 07/03/19 20:15 2.0 /HPF (0.0-6.0) 07/03/19 20:15 U Epithel Cells (Auto) 1.0 /HPF (0-13.0) 07/03/19 20:15 1+ /HPF (Negative) 07/03/19 20:15 Presumptive negative 07/03/19 20:15 Presumptive negative 07/03/19 20:15 Ur Barbiturates Screen Presumptive negative 07/03/19 20:15 Ur Phencyclidine Scrn Presumptive negative 07/03/19 20:15 Ur Amphetamines Screen Presumptive negative 07/03/19 20:15 U Benzodiazepines Scrn Presumptive negative 07/03/19 20:15 Presumptive negative 07/03/19 20:15 U Marijuana (THC) Screen Presumptive negative 07/03/19 20:15 Disclamer 07/03/19 20:15 Active Medications - Current Medications Current Medications: Generic Name Dose Route Start Last Admin Trade Name Freq PRN Reason Stop Dose Admin Acetaminophen 650 mg 07/01/19 06:08 Tylenol PO Q4H PRN Headache Amlodipine Besylate 10 mg 07/02/19 10:00 07/05/19 09:02 Norvasc PO 10 mg QDAY JAJA Administration Aspirin 325 mg 07/01/19 10:00 07/05/19 09:03 Aspirin PO 325 mg QDAY JAJA Administration Carvedilol 25 mg 07/01/19 22:00 07/05/19 09:02 Coreg PO 25 mg BID JAJA Administration Dextrose 50 ml 07/01/19 06:18 D50w (25gm) Syringe IV PRN PRN Hypoglycemia Diphenhydramine HCl 50 mg 07/01/19 17:17 07/04/19 22:36 Benadryl IV 50 mg PRN PRN Administration Extrapyramidal Effects Furosemide 40 mg 07/05/19 06:00 07/05/19 05:05 Lasix IV 40 mg 0600 JAJA Administration Haloperidol 5 mg 07/01/19 17:17 07/05/19 09:43 Haldol PO 5 mg Q4HR PRN Administration Agitation Heparin Sodium (Porcine) 5,000 unit 07/03/19 06:00 07/05/19 05:05 Heparin SUB-Q 5,000 unit Q8HR JAJA Administration Hydralazine HCl 10 mg 07/01/19 12:56 07/01/19 18:20 Apresoline IV 10 mg Q6H PRN Administration Blood Pressure Hydralazine HCl 100 mg 07/01/19 20:00 07/05/19 09:03 Apresoline PO 100 mg TID JAJA Administration Insulin Glargine 10 units 07/01/19 22:00 07/04/19 21:36 Lantus SUB-Q 10 units QHS [facility] Administration Insulin Human Regular 0 units 07/02/19 07:30 07/05/19 07:30 Humulin R SUB-Q 3 units ACHS [facility] Administration Protocol Isosorbide Mononitrate 60 mg 07/01/19 18:00 07/05/19 09:01 Imdur PO 60 mg QDAY [facility] Administration Lisinopril 40 mg 07/01/19 20:00 07/05/19 09:03 Zestril PO 40 mg QDAY [facility] Administration Miscellaneous Medication 150 mg 07/01/19 22:00 Quetiapine Fumarate [Seroquel Xr] PO QHS [facility] Morphine Sulfate 2 mg 07/01/19 06:07 07/05/19 00:38 Morphine IV 2 mg Q3H PRN Administration Pain, Moderate (4-6) Nitroglycerin 0.5 inch 07/01/19 10:00 07/05/19 09:06 Nitro-Bid 2% TP 0.5 inch QIDNTG [facility] Administration Protocol Nitroglycerin 0.4 mg 07/01/19 06:07 Nitrostat SL .Q5MIN PRN Chest Pain Ondansetron HCl 4 mg 07/01/19 06:08 Zofran IV Q8H PRN Nausea And Vomiting Potassium Chloride 20 meq 07/05/19 08:00 07/05/19 09:01 K-Dur PO 20 meq Q24H [facility] Administration Sertraline HCl 50 mg 07/02/19 10:00 07/05/19 09:03 Zoloft PO 50 mg QDAY [facility] Administration Spironolactone 25 mg 07/01/19 20:00 07/05/19 09:02 Aldactone PO 25 mg QDAY [facility] Administration Torsemide 40 mg 07/01/19 20:00 07/05/19 09:01 Demadex PO 40 mg QDAY JAJA Administration Zolpidem Tartrate 5 mg 07/05/19 00:45 07/05/19 00:58 Ambien PO 5 mg QHS PRN Administration Sleep
[2019-07-05] MEDS ORDERED: APRESOLINE PO SCH (12:34)
--- NOTE | 2019-07-05 12:40 | Progress Note ---
Assessment and Plan Assessment and plan: 64-year-old man history of hypertension diabetes and psychiatric illness. He was sent from [place] for suicidal ideation. He also reported chest pain upon arriving in the ER. Stress test, 07/01 neg echo 07/02 EF 15% Acute psychosis, SI cont 1013, meds per psych Insomnia Did not improve and Ambien. We'll give him 50 mg of Benadryl, 4 mg of Ativan, and restart his Seroquel 100mg at HS, and 50 qam Chronic systolic CHF, CP cardiology input appreciated, cont meds CP likely due to costochondritis Tobacco abuse Smoking cessation counseling performed for 10 minutes, nicotine patches when necessary Medically stable to go to psych facility History Interval history: Review of systems Constitutional: No fevers, no malaise, no joint pains CVS: No chest pain, no orthopnea, no dyspnea on exertion, no pedal edema GI: No abdominal pain, no diarrhea, no vomiting, no constipation Respiratory: no wheezing, no coughing Hospitalist Physical - Physical exam Narrative exam: General.: Appears well, no distress, nontoxic HEENT: Moist mucous membranes, extraocular muscles intact, no lymphadenopathy Neck: supple Cardiac: S1-S2 heard Lungs: clear to auscultation bilaterally Abdomen: soft , nontender, nondistended, bowel sounds positive Extremities: no edema clubbing or cyanosis Skin: no rash or lesions Neurologic: no gross focal deficits Psych: calm, and cooperative - Constitutional Vitals: Temp Pulse Resp BP Pulse Ox 98.7 F 92 H 18 98/53 93 07/05/19 11:22 07/05/19 11:22 07/05/19 11:22 07/05/19 11:22 07/05/19 11:22 General appearance: Present: no acute distress, well-nourished Results - Labs CBC & Chem 7: 07/05/19 04:16 07/05/19 04:16 Labs: Laboratory Last Values WBC 6.2 K/mm3 (4.5-11.0) 07/05/19 04:16 RBC 4.90 M/mm3 (3.65-5.03) 07/05/19 04:16 Hgb 15.1 gm/dl (11.8-15.2) 07/05/19 04:16 Hct 43.5 % (35.5-45.6) 07/05/19 04:16 MCV 89 fl (84-94) 07/05/19 04:16 MCH 31 pg (28-32) 07/05/19 04:16 MCHC 35 % (32-34) H 07/05/19 04:16 RDW 13.5 % (13.2-15.2) 07/05/19 04:16 Plt Count 165 K/mm3 (140-440) 07/05/19 04:16 Lymph % (Auto) [place] 07/05/19 04:16 [place] % (Auto) 9.2 % (0.0-7.3) H 07/02/19 04:31 Eos % (Auto) 0.6 % (0.0-4.3) 07/02/19 04:31 Baso % (Auto) 0.5 % (0.0-1.8) 07/02/19 04:31 Lymph # 4.0 K/mm3 (1.2-5.4) 07/02/19 04:31 [place] # 0.8 K/mm3 (0.0-0.8) 07/02/19 04:31 Eos # 0.1 K/mm3 (0.0-0.4) 07/02/19 04:31 Baso # 0.0 K/mm3 (0.0-0.1) 07/02/19 04:31 Add Manual Diff Complete 07/05/19 04:16 Total Counted 100 07/05/19 04:16 Seg Neutrophils % [place] 07/05/19 04:16 Seg Neuts % (Manual) 23.0 % (40.0-70.0) L 07/05/19 04:16 0 % 07/05/19 04:16 70.0 % (13.4-35.0) H 07/05/19 04:16 Reactive Lymphs % (Man) 0 % 07/05/19 04:16 7.0 % (0.0-7.3) 07/05/19 04:16 0 % (0.0-4.3) 07/05/19 04:16 0 % (0.0-1.8) 07/05/19 04:16 0 % 07/05/19 04:16 0 % 07/05/19 04:16 0 % 07/05/19 04:16 0 % 07/05/19 04:16 Nucleated RBC % Not Reportable 07/05/19 04:16 Seg Neutrophils # 3.4 K/mm3 (1.8-7.7) 07/02/19 04:31 Seg Neutrophils # Man 1.4 K/mm3 (1.8-7.7) L 07/05/19 04:16 Band Neutrophils # 0.0 K/mm3 07/05/19 04:16 4.3 K/mm3 (1.2-5.4) 07/05/19 04:16 Abs React Lymphs (Man) 0.0 K/mm3 07/05/19 04:16 0.4 K/mm3 (0.0-0.8) 07/05/19 04:16 0.0 K/mm3 (0.0-0.4) 07/05/19 04:16 0.0 K/mm3 (0.0-0.1) 07/05/19 04:16 0.0 K/mm3 07/05/19 04:16 0.0 K/mm3 07/05/19 04:16 0.0 K/mm3 07/05/19 04:16 Blast Cells # 0.0 K/mm3 07/05/19 04:16 WBC Morphology Not Reportable 07/05/19 04:16 Hypersegmented Neuts Not Reportable 07/05/19 04:16 Hyposegmented Neuts Not Reportable 07/05/19 04:16 Hypogranular Neuts Not Reportable 07/05/19 04:16 Not Reportable 07/05/19 04:16 Not Reportable 07/05/19 04:16 Not Reportable 07/05/19 04:16 Not Reportable 07/05/19 04:16 Not Reportable 07/05/19 04:16 Not Reportable 07/05/19 04:16 Consistent w auto 07/05/19 04:16 Not Reportable 07/05/19 04:16 Plt Clumps, EDTA Not Reportable 07/05/19 04:16 Not Reportable 07/05/19 04:16 Not Reportable 07/05/19 04:16 Not Reportable 07/05/19 04:16 Plt Morphology Comment Not Reportable 07/05/19 04:16 RBC Morphology Normal 07/05/19 04:16 Dimorphic RBCs Not Reportable 07/05/19 04:16 Not Reportable 07/05/19 04:16 Not Reportable 07/05/19 04:16 Not Reportable 07/05/19 04:16 Not Reportable 07/05/19 04:16 Not Reportable 07/05/19 04:16 Not Reportable 07/05/19 04:16 Not Reportable 07/05/19 04:16 Not Reportable 07/05/19 04:16 Not Reportable 07/05/19 04:16 Not Reportable 07/05/19 04:16 Not Reportable 07/05/19 04:16 Not Reportable 07/05/19 04:16 Not Reportable 07/05/19 04:16 Not Reportable 07/05/19 04:16 Not Reportable 07/05/19 04:16 Not Reportable 07/05/19 04:16 Not Reportable 07/05/19 04:16 Not Reportable 07/05/19 04:16 Not Reportable 07/05/19 04:16 Acanthocytes (Spur) Not Reportable 07/05/19 04:16 Rouleaux Not Reportable 07/05/19 04:16 Not Reportable 07/05/19 04:16 Not Reportable 07/05/19 04:16 Not Reportable 07/05/19 04:16 Not Reportable 07/05/19 04:16 Hem Pathologist Commnt No 07/05/19 04:16 PT 19.1 Sec. (12.2-14.9) H 07/01/19 04:44 INR 1.65 (0.87-1.13) H 07/01/19 04:44 APTT 28.2 Sec. (24.2-36.6) 07/01/19 04:44 Sodium 137 mmol/L (137-145) 07/05/19 04:16 Potassium 3.4 mmol/L (3.6-5.0) L 07/05/19 04:16 Chloride 97.1 mmol/L (98-107) L 07/05/19 04:16 Carbon Dioxide 26 mmol/L (22-30) 07/05/19 04:16 17 mmol/L 07/05/19 04:16 BUN 23 mg/dL (9-20) H 07/05/19 04:16 1.3 mg/dL (0.8-1.5) 07/05/19 04:16 Estimated GFR > 60 ml/min 07/05/19 04:16 18 % 07/05/19 04:16 Glucose 159 mg/dL (75-100) H 07/05/19 04:16 POC Glucose 258 (70-105) H 07/05/19 08:44 Calcium 8.8 mg/dL (8.4-10.2) 07/05/19 04:16 0.50 mg/dL (0.1-1.2) 07/05/19 04:16 AST 27 units/L (5-40) 07/05/19 04:16 ALT 49 units/L (7-56) 07/05/19 04:16 71 units/L (35-129) 07/05/19 04:16 133 units/L (55-170) 07/01/19 17:29 CK-MB (CK-2) 2.2 ng/mL (0.0-4.0) 07/01/19 17:29 CK-MB (CK-2) Rel Index 1.6 (0-4) 07/01/19 17:29 < 0.010 ng/mL (0.00-0.029) 07/01/19 17:29 6.2 g/dL (6.3-8.2) L 07/05/19 04:16 3.3 g/dL (3.9-5) L 07/05/19 04:16 1.1 % 07/05/19 04:16 Yellow (Yellow) 07/03/19 20:15 Cloudy (Clear) 07/03/19 20:15 5.0 (5.0-7.0) 07/03/19 20:15 Ur Specific [place] 1.019 (1.003-1.030) 07/03/19 20:15 100 mg/dl mg/dL (Negative) 07/03/19 20:15 50 mg/dL (Negative) 07/03/19 20:15 Neg mg/dL (Negative) 07/03/19 20:15 Neg (Negative) 07/03/19 20:15 Neg (Negative) 07/03/19 20:15 Neg (Negative) 07/03/19 20:15 < 2.0 mg/dL (<2.0) 07/03/19 20:15 Ur Leukocyte Esterase Neg (Negative) 07/03/19 20:15 < 1.0 /HPF (0.0-6.0) 07/03/19 20:15 2.0 /HPF (0.0-6.0) 07/03/19 20:15 U Epithel Cells (Auto) 1.0 /HPF (0-13.0) 07/03/19 20:15 1+ /HPF (Negative) 07/03/19 20:15 Presumptive negative 07/03/19 20:15 Presumptive negative 07/03/19 20:15 Ur Barbiturates Screen Presumptive negative 07/03/19 20:15 Ur Phencyclidine Scrn Presumptive negative 07/03/19 20:15 Ur Amphetamines Screen Presumptive negative 07/03/19 20:15 U Benzodiazepines Scrn Presumptive negative 07/03/19 20:15 Presumptive negative 07/03/19 20:15 U Marijuana (THC) Screen Presumptive negative 07/03/19 20:15 Disclamer 07/03/19 20:15 Active Medications - Current Medications Current Medications: Generic Name Dose Route Start Last Admin Trade Name Freq PRN Reason Stop Dose Admin Acetaminophen 650 mg 07/01/19 06:08 Tylenol PO Q4H PRN Headache Aspirin 325 mg 07/01/19 10:00 07/05/19 09:03 Aspirin PO 325 mg QDAY JAJA Administration Carvedilol 25 mg 07/01/19 22:00 07/05/19 09:02 Coreg PO 25 mg BID JAJA Administration Dextrose 50 ml 07/01/19 06:18 D50w (25gm) Syringe IV PRN PRN Hypoglycemia Diphenhydramine HCl 50 mg 07/01/19 17:17 07/04/19 22:36 Benadryl IV 50 mg PRN PRN Administration Extrapyramidal Effects Diphenhydramine HCl 50 mg 07/05/19 12:35 Benadryl PO QHS PRN Sleep Haloperidol 5 mg 07/01/19 17:17 07/05/19 09:43 Haldol PO 5 mg Q4HR PRN Administration Agitation Heparin Sodium (Porcine) 5,000 unit 07/03/19 06:00 07/05/19 05:05 Heparin SUB-Q 5,000 unit Q8HR JAJA Administration Hydralazine HCl 10 mg 07/01/19 12:56 08/31/19 18:20 Apresoline IV 10 mg Q6H PRN Administration Blood Pressure Hydralazine HCl 25 mg 07/05/19 12:34 Apresoline PO TID ON LICENSE OF [facility] Insulin Glargine 10 units 07/01/19 22:00 07/04/19 21:36 Lantus SUB-Q 10 units QHS JAJA Administration Insulin Human Regular 0 units 07/02/19 07:30 07/05/19 11:30 Humulin R SUB-Q 1 units ACHS ON LICENSE OF [facility] Administration Protocol Isosorbide Mononitrate 60 mg 07/01/19 18:00 07/05/19 09:01 Imdur PO 60 mg QDAY ON LICENSE OF [facility] Administration Lisinopril 40 mg 07/01/19 20:00 07/05/19 09:03 Zestril PO 40 mg QDAY ON LICENSE OF [facility] Administration Lorazepam 4 mg 07/05/19 22:00 Ativan PO QHS ON LICENSE OF [facility] Miscellaneous Medication 150 mg 07/01/19 22:00 Quetiapine Fumarate [Seroquel Xr] PO QHS ON LICENSE OF [facility] Morphine Sulfate 2 mg 07/01/19 06:07 07/05/19 00:38 Morphine IV 2 mg Q3H PRN Administration Pain, Moderate (4-6) Nitroglycerin 0.5 inch 07/01/19 10:00 07/05/19 09:06 Nitro-Bid 2% TP 0.5 inch QIDNTG ON LICENSE OF [facility] Administration Protocol Nitroglycerin 0.4 mg 07/01/19 06:07 Nitrostat SL .Q5MIN PRN Chest Pain Ondansetron HCl 4 mg 07/01/19 06:08 Zofran IV Q8H PRN Nausea And Vomiting Potassium Chloride 20 meq 07/05/19 08:00 07/05/19 09:01 K-Dur PO 20 meq Q24H JAJA Administration Quetiapine Fumarate 100 mg 07/05/19 22:00 Seroquel PO QHS ON LICENSE OF [facility] Quetiapine Fumarate 50 mg 07/05/19 13:00 Seroquel PO Q24H JAJA Sertraline HCl 50 mg 07/02/19 10:00 07/05/19 09:03 Zoloft PO 50 mg QDAY ON LICENSE OF [facility] Administration Spironolactone 25 mg 07/01/19 20:00 07/05/19 09:02 Aldactone PO 25 mg QDAY ON LICENSE OF [facility] Administration Torsemide 40 mg 07/01/19 20:00 07/05/19 09:01 Demadex PO 40 mg QDAY JAJA Administration
[2019-07-05] MEDS: BENADRYL IV PRN (16:56)
[2019-07-05] MEDS: BENADRYL PO PRN (22:15)
[2019-07-05] MEDS: ATIVAN PO SCH (22:15)
[2019-07-05] MEDS: LANTUS SUB-Q SCH (22:16)
[2019-07-06] MEDS: HEPARIN SUB-Q SCH ×3 (06:24→22:11)
[2019-07-06] MEDS: NITRO-BID 2% TP SCH ×4 (06:24→17:21)
[2019-07-06] MEDS: K-DUR PO SCH (08:27)
[2019-07-06] MEDS: APRESOLINE PO SCH ×3 (08:27→20:40)
[2019-07-06] MEDS: HumuLIN R SUB-Q SCH ×4 (08:27→22:07)
--- NOTE | 2019-07-06 08:32 | Progress Note ---
Assessment and Plan Assessment and plan: 64-year-old man history of hypertension diabetes and psychiatric illness. He was sent from [place] for suicidal ideation. He also reported chest pain upon arriving in the ER. Stress test, 07/01 neg echo 07/02 EF 15% Acute psychosis, SI cont 1013, meds per psych Insomnia Did not improve and Ambien. We'll give him 50 mg of Benadryl, 4 mg of Ativan, and restart his Seroquel 100mg at HS, and 50 qam Chronic systolic CHF, CP cardiology input appreciated, cont meds CP likely due to costochondritis Tobacco abuse Smoking cessation counseling performed for 10 minutes, nicotine patches when necessary Medically stable to go to psych facility History Interval history: Review of systems Constitutional: No fevers, no malaise, no joint pains CVS: No chest pain, no orthopnea, no dyspnea on exertion, no pedal edema GI: No abdominal pain, no diarrhea, no vomiting, no constipation Respiratory: no wheezing, no coughing Hospitalist Physical - Physical exam Narrative exam: General.: Appears well, no distress, nontoxic HEENT: Moist mucous membranes, extraocular muscles intact, no lymphadenopathy Neck: supple Cardiac: S1-S2 heard Lungs: clear to auscultation bilaterally Abdomen: soft , nontender, nondistended, bowel sounds positive Extremities: no edema clubbing or cyanosis Skin: no rash or lesions Neurologic: no gross focal deficits Psych: calm, and cooperative - Constitutional Vitals: Temp Pulse Resp BP Pulse Ox 98.2 F 98 H 18 139/79 99 07/06/19 05:56 07/06/19 05:56 07/06/19 05:56 07/06/19 05:56 07/06/19 05:56 General appearance: Present: no acute distress, well-nourished Results - Labs CBC & Chem 7: 07/05/19 04:16 07/05/19 04:16 Labs: Laboratory Last Values WBC 6.2 K/mm3 (4.5-11.0) 07/05/19 04:16 RBC 4.90 M/mm3 (3.65-5.03) 07/05/19 04:16 Hgb 15.1 gm/dl (11.8-15.2) 07/05/19 04:16 Hct 43.5 % (35.5-45.6) 07/05/19 04:16 MCV 89 fl (84-94) 07/05/19 04:16 MCH 31 pg (28-32) 07/05/19 04:16 MCHC 35 % (32-34) H 07/05/19 04:16 RDW 13.5 % (13.2-15.2) 07/05/19 04:16 Plt Count 165 K/mm3 (140-440) 07/05/19 04:16 Lymph % (Auto) [place] 07/05/19 04:16 [place] % (Auto) 9.2 % (0.0-7.3) H 07/02/19 04:31 Eos % (Auto) 0.6 % (0.0-4.3) 07/02/19 04:31 Baso % (Auto) 0.5 % (0.0-1.8) 07/02/19 04:31 Lymph # 4.0 K/mm3 (1.2-5.4) 07/02/19 04:31 [place] # 0.8 K/mm3 (0.0-0.8) 07/02/19 04:31 Eos # 0.1 K/mm3 (0.0-0.4) 07/02/19 04:31 Baso # 0.0 K/mm3 (0.0-0.1) 07/02/19 04:31 Add Manual Diff Complete 07/05/19 04:16 Total Counted 100 07/05/19 04:16 Seg Neutrophils % [place] 07/05/19 04:16 Seg Neuts % (Manual) 23.0 % (40.0-70.0) L 07/05/19 04:16 0 % 07/05/19 04:16 70.0 % (13.4-35.0) H 07/05/19 04:16 Reactive Lymphs % (Man) 0 % 07/05/19 04:16 7.0 % (0.0-7.3) 07/05/19 04:16 0 % (0.0-4.3) 07/05/19 04:16 0 % (0.0-1.8) 07/05/19 04:16 0 % 07/05/19 04:16 0 % 07/05/19 04:16 0 % 07/05/19 04:16 0 % 07/05/19 04:16 Nucleated RBC % Not Reportable 07/05/19 04:16 Seg Neutrophils # 3.4 K/mm3 (1.8-7.7) 07/02/19 04:31 Seg Neutrophils # Man 1.4 K/mm3 (1.8-7.7) L 07/05/19 04:16 Band Neutrophils # 0.0 K/mm3 07/05/19 04:16 4.3 K/mm3 (1.2-5.4) 07/05/19 04:16 Abs React Lymphs (Man) 0.0 K/mm3 07/05/19 04:16 0.4 K/mm3 (0.0-0.8) 07/05/19 04:16 0.0 K/mm3 (0.0-0.4) 07/05/19 04:16 0.0 K/mm3 (0.0-0.1) 07/05/19 04:16 0.0 K/mm3 07/05/19 04:16 0.0 K/mm3 07/05/19 04:16 0.0 K/mm3 07/05/19 04:16 Blast Cells # 0.0 K/mm3 07/05/19 04:16 WBC Morphology Not Reportable 07/05/19 04:16 Hypersegmented Neuts Not Reportable 07/05/19 04:16 Hyposegmented Neuts Not Reportable 07/05/19 04:16 Hypogranular Neuts Not Reportable 07/05/19 04:16 Not Reportable 07/05/19 04:16 Not Reportable 07/05/19 04:16 Not Reportable 07/05/19 04:16 Not Reportable 07/05/19 04:16 Not Reportable 07/05/19 04:16 Not Reportable 07/05/19 04:16 Consistent w auto 07/05/19 04:16 Not Reportable 07/05/19 04:16 Plt Clumps, EDTA Not Reportable 07/05/19 04:16 Not Reportable 07/05/19 04:16 Not Reportable 07/05/19 04:16 Not Reportable 07/05/19 04:16 Plt Morphology Comment Not Reportable 07/05/19 04:16 RBC Morphology Normal 07/05/19 04:16 Dimorphic RBCs Not Reportable 07/05/19 04:16 Not Reportable 07/05/19 04:16 Not Reportable 07/05/19 04:16 Not Reportable 07/05/19 04:16 Not Reportable 07/05/19 04:16 Not Reportable 07/05/19 04:16 Not Reportable 07/05/19 04:16 Not Reportable 07/05/19 04:16 Not Reportable 07/05/19 04:16 Not Reportable 07/05/19 04:16 Not Reportable 07/05/19 04:16 Not Reportable 07/05/19 04:16 Not Reportable 07/05/19 04:16 Not Reportable 07/05/19 04:16 Not Reportable 07/05/19 04:16 Not Reportable 07/05/19 04:16 Not Reportable 07/05/19 04:16 Not Reportable 07/05/19 04:16 Not Reportable 07/05/19 04:16 Not Reportable 07/05/19 04:16 Acanthocytes (Spur) Not Reportable 07/05/19 04:16 Rouleaux Not Reportable 07/05/19 04:16 Not Reportable 07/05/19 04:16 Not Reportable 07/05/19 04:16 Not Reportable 07/05/19 04:16 Not Reportable 07/05/19 04:16 Hem Pathologist Commnt No 07/05/19 04:16 PT 19.1 Sec. (12.2-14.9) H 07/01/19 04:44 INR 1.65 (0.87-1.13) H 07/01/19 04:44 APTT 28.2 Sec. (24.2-36.6) 07/01/19 04:44 Sodium 137 mmol/L (137-145) 07/05/19 04:16 Potassium 3.4 mmol/L (3.6-5.0) L 07/05/19 04:16 Chloride 97.1 mmol/L (98-107) L 07/05/19 04:16 Carbon Dioxide 26 mmol/L (22-30) 07/05/19 04:16 17 mmol/L 07/05/19 04:16 BUN 23 mg/dL (9-20) H 07/05/19 04:16 1.3 mg/dL (0.8-1.5) 07/05/19 04:16 Estimated GFR > 60 ml/min 07/05/19 04:16 18 % 07/05/19 04:16 Glucose 159 mg/dL (75-100) H 07/05/19 04:16 POC Glucose 209 (70-105) H 07/06/19 07:38 Calcium 8.8 mg/dL (8.4-10.2) 07/05/19 04:16 0.50 mg/dL (0.1-1.2) 07/05/19 04:16 AST 27 units/L (5-40) 07/05/19 04:16 ALT 49 units/L (7-56) 07/05/19 04:16 71 units/L (35-129) 07/05/19 04:16 133 units/L (55-170) 07/01/19 17:29 CK-MB (CK-2) 2.2 ng/mL (0.0-4.0) 07/01/19 17:29 CK-MB (CK-2) Rel Index 1.6 (0-4) 07/01/19 17:29 < 0.010 ng/mL (0.00-0.029) 07/01/19 17:29 6.2 g/dL (6.3-8.2) L 07/05/19 04:16 3.3 g/dL (3.9-5) L 07/05/19 04:16 1.1 % 07/05/19 04:16 Yellow (Yellow) 07/03/19 20:15 Cloudy (Clear) 07/03/19 20:15 5.0 (5.0-7.0) 07/03/19 20:15 Ur Specific [place] 1.019 (1.003-1.030) 07/03/19 20:15 100 mg/dl mg/dL (Negative) 07/03/19 20:15 50 mg/dL (Negative) 07/03/19 20:15 Neg mg/dL (Negative) 07/03/19 20:15 Neg (Negative) 07/03/19 20:15 Neg (Negative) 07/03/19 20:15 Neg (Negative) 07/03/19 20:15 < 2.0 mg/dL (<2.0) 07/03/19 20:15 Ur Leukocyte Esterase Neg (Negative) 07/03/19 20:15 < 1.0 /HPF (0.0-6.0) 07/03/19 20:15 2.0 /HPF (0.0-6.0) 07/03/19 20:15 U Epithel Cells (Auto) 1.0 /HPF (0-13.0) 07/03/19 20:15 1+ /HPF (Negative) 07/03/19 20:15 Presumptive negative 07/03/19 20:15 Presumptive negative 07/03/19 20:15 Ur Barbiturates Screen Presumptive negative 07/03/19 20:15 Ur Phencyclidine Scrn Presumptive negative 07/03/19 20:15 Ur Amphetamines Screen Presumptive negative 07/03/19 20:15 U Benzodiazepines Scrn Presumptive negative 07/03/19 20:15 Presumptive negative 07/03/19 20:15 U Marijuana (THC) Screen Presumptive negative 07/03/19 20:15 Disclamer 07/03/19 20:15 Active Medications - Current Medications Current Medications: Generic Name Dose Route Start Last Admin Trade Name Freq PRN Reason Stop Dose Admin Acetaminophen 650 mg 07/01/19 06:08 Tylenol PO Q4H PRN Headache Aspirin 325 mg 07/01/19 10:00 07/05/19 09:03 Aspirin PO 325 mg QDAY JAJA Administration Carvedilol 25 mg 07/01/19 22:00 07/05/19 22:16 Coreg PO 25 mg BID JAJA Administration Dextrose 50 ml 07/01/19 06:18 D50w (25gm) Syringe IV PRN PRN Hypoglycemia Diphenhydramine HCl 50 mg 07/01/19 17:17 07/05/19 16:56 Benadryl IV 50 mg PRN PRN Administration Extrapyramidal Effects Diphenhydramine HCl 50 mg 07/05/19 22:00 07/05/19 22:15 Benadryl PO 50 mg QHS PRN Administration Sleep Haloperidol 5 mg 07/01/19 17:17 07/05/19 09:43 Haldol PO 5 mg Q4HR PRN Administration Agitation Heparin Sodium (Porcine) 5,000 unit 07/03/19 06:00 07/06/19 06:24 Heparin SUB-Q 5,000 unit Q8HR JAJA Administration Hydralazine HCl 10 mg 07/01/19 12:56 07/01/19 18:20 Apresoline IV 10 mg Q6H PRN Administration Blood Pressure Hydralazine HCl 25 mg 07/05/19 14:00 07/06/19 08:27 Apresoline PO 25 mg TID JAJA Administration Insulin Glargine 10 units 07/01/19 22:00 07/05/19 22:16 Lantus SUB-Q 10 units QHS JAJA Administration Insulin Human Regular 0 units 07/02/19 07:30 07/06/19 08:27 Humulin R SUB-Q 2 units ACHS JAJA Administration Protocol Isosorbide Mononitrate 60 mg 07/01/19 18:00 07/05/19 09:01 Imdur PO 60 mg QDAY JAJA Administration Lisinopril 40 mg 07/01/19 20:00 07/05/19 09:03 Zestril PO 40 mg QDAY JAJA Administration Lorazepam 4 mg 07/05/19 22:00 07/05/19 22:15 Ativan PO 4 mg QHS JAJA Administration Morphine Sulfate 2 mg 07/01/19 06:07 07/05/19 00:38 Morphine IV 2 mg Q3H PRN Administration Pain, Moderate (4-6) Nitroglycerin 0.5 inch 07/01/19 10:00 07/06/19 06:24 Nitro-Bid 2% TP 0.5 inch QIDNTG [facility] Administration Protocol Nitroglycerin 0.4 mg 07/01/19 06:07 Nitrostat SL .Q5MIN PRN Chest Pain Ondansetron HCl 4 mg 07/01/19 06:08 Zofran IV Q8H PRN Nausea And Vomiting Potassium Chloride 20 meq 07/05/19 08:00 07/06/19 08:27 K-Dur PO 20 meq Q24H JAJA Administration Quetiapine Fumarate 100 mg 07/05/19 22:00 07/05/19 22:47 Seroquel PO Not Given QHS JAJA Quetiapine Fumarate 50 mg 07/05/19 13:00 07/05/19 14:57 Seroquel PO 50 mg Q24HR JAJA Administration Sertraline HCl 50 mg 07/02/19 10:00 07/05/19 09:03 Zoloft PO 50 mg QDAY JAJA Administration Spironolactone 25 mg 07/01/19 20:00 07/05/19 09:02 Aldactone PO 25 mg QDAY JAJA Administration Torsemide 40 mg 07/01/19 20:00 07/05/19 09:01 Demadex PO 40 mg QDAY JAJA Administration
[2019-07-06] MEDS: DEMADEX PO SCH (09:56)
[2019-07-06] MEDS: COREG PO SCH ×2 (09:56→22:09)
[2019-07-06] MEDS: ASPIRIN PO SCH (09:56)
[2019-07-06] MEDS: IMDUR PO SCH (09:56)
[2019-07-06] MEDS: ZOLOFT PO SCH (09:57)
[2019-07-06] MEDS: ZESTRIL PO SCH (09:57)
[2019-07-06] MEDS: ALDACTONE PO SCH (09:57)
--- NOTE | 2019-07-06 13:18 | Progress Note ---
Subjective - Reason for Consult Consult date: 07/06/19 Reason for consult: Psychiatry Follow-up - Chief Complaint Chief complaint: "Things will be okay with me" Patient is a 64-year-old -[place] male who presented to the hospital from [facility] for chest pain. Per the record, he was a patient at [facility] for SI's. Today the patient was calm and cooperative during the assessment. He stated that he has a hx of depression and insomnia. He stated that he is known to isolate himself during times of crisis. He stated that he have had suicidal thoughts, but denies them today. He stated that he is seen by Dr Segovia for outpatient psy services. He stated that he plan to see his psychiatrist once discharged. He denies SI/HI's and AVH's. He denies any side effects from his medications. Mental Status Exam - Vital signs Last Vital Signs Temp 98.0 F 07/06/19 12:02 Pulse 98 H 07/06/19 12:02 Resp 20 07/06/19 12:02 BP 103/68 07/06/19 12:02 Pulse Ox 97 07/06/19 12:02 - Exam Narrative exam: MSE: Appearance: calm, cooperative Behavior: regular eye contact Speech: regular rate and tone Mood: "better" Affect: flat Thought Process: linear Thought Content: denies SI/HI's and AVH's Motor Activity: sitting up in the bed Cognition: A/O x3 Insight: appropriate Judgment: appropriate Assessment and Plan Impression: Unspecified Mood DO. Today the patient was calm, but guarded during the assessment. Per the record, [facility] DDx: MDD, R/O Bipolar DO Recommendation/Plan: Rescind 1013. Continue Zoloft 50 mg PO daily for depression. Discussed possible suicidality/medication induced fish with the patient reference Zoloft, her verbalized understanding. Discussed with the patient the importance to take medications as prescribed, he verbalized understanding. Psy sign off. Dispo: The patient can follow up with his psychiatrist Dr Segovia for outpatient psy services. Will staff with Dr Tammi Gibson.
[2019-07-06] MEDS: ATIVAN PO SCH (22:09)
[2019-07-06] MEDS: LANTUS SUB-Q SCH (22:12)
[2019-07-06] MEDS: BENADRYL PO PRN (22:22)
--- NOTE | 2019-07-06 22:52 | Discharge Summary ---
Providers - Providers Date of Admission: 07/01/19 07:51 Attending physician: STELLA HESS MD 07/02/19 07:56 Consult to Mental Health [CONS] Routine Reason For Exam: sucidal ideation Place consult to:: mental health Notified:: notified Primary care physician: DATABASE REPORTING CONSULTANT Hospitalization Condition: Stable Hospital course: 64-year-old man history of hypertension diabetes and psychiatric illness. He was sent from [place] for suicidal ideation. He also reported chest pain upon arriving in the ER. Stress test, 07/01 neg echo 07/02 EF 15% Acute psychosis, SI cont 1013, meds per psych Insomnia Did not improve and Ambien. We'll give him 50 mg of Benadryl, 4 mg of Ativan, and restart his Seroquel 100mg at HS, and 50 qam Chronic systolic CHF, CP cardiology input appreciated, cont meds CP likely due to costochondritis Tobacco abuse Smoking cessation counseling performed for 10 minutes, nicotine patches when necessary Medically stable to go to psych facility Disposition: TO HOME OR SELFCARE Time spent for discharge: 33 mins Core Measure Documentation - Palliative Care Palliative Care/ Comfort Measures: Not Applicable - Core Measures Any of the following diagnoses?: none Exam - Constitutional Vitals: Temp Pulse Resp BP Pulse Ox 98.7 F 99 H 18 118/65 97 07/06/19 21:03 07/06/19 22:09 07/06/19 21:03 07/06/19 21:03 07/06/19 21:03 General appearance: Present: no acute distress, well-nourished - EENT Eyes: Present: PERRL ENT: hearing intact, clear oral mucosa - Neck Neck: Present: supple, normal ROM - Respiratory Respiratory effort: normal Respiratory: bilateral: CTA - Cardiovascular Heart Sounds: Present: S1 & S2. Absent: rub, click - Extremities Extremities: pulses symmetrical, No edema Peripheral Pulses: within normal limits - Abdominal General gastrointestinal: Present: soft, non-tender, non-distended, normal bowel sounds Male genitourinary: Present: normal - Integumentary Integumentary: Present: clear, warm, dry - Musculoskeletal Musculoskeletal: gait normal, strength equal bilaterally - Psychiatric Psychiatric: appropriate mood/affect, intact judgment & insight - Neurologic Neurologic: CNII-XII intact, moves all extremities Plan Follow up with: PRIMARY CARE, [Primary Care Provider] - 3-5 Days Prescriptions: LORazepam [Ativan] 4 mg PO QHS PRN #7 tablet PRN Reason: Insomnia diphenhydrAMINE [Benadryl CAP] 50 mg PO QHS PRN #60 capsule PRN Reason: Sleep Insulin Glargine [Lantus VIAL] 15 units SUB-Q QHS #1 vial hydrALAZINE [Apresoline TAB] 25 mg PO TID #90 tablet Potassium Chloride [K-Dur] 20 meq PO Q24H #30 tablet Sertraline [Zoloft] 50 mg PO QDAY #30 tablet
[2019-07-07] MEDS: NITRO-BID 2% TP SCH ×2 (05:50→12:54)
[2019-07-07] MEDS: HEPARIN SUB-Q SCH (05:51)
[2019-07-07] MEDS: BENADRYL IV PRN (06:07)
[2019-07-07] MEDS: ASPIRIN PO SCH (09:07)
[2019-07-07] MEDS: COREG PO SCH (09:07)
[2019-07-07] MEDS: APRESOLINE PO SCH (09:07)
[2019-07-07] MEDS: ZESTRIL PO SCH (09:08)
[2019-07-07] MEDS: K-DUR PO SCH (09:09)
[2019-07-07] MEDS: DEMADEX PO SCH (09:57)
[2019-07-07] MEDS: IMDUR PO SCH (09:57)
[2019-07-07] MEDS: ALDACTONE PO SCH (09:57)
[2019-07-07] MEDS: HumuLIN R SUB-Q SCH ×2 (09:57→12:55)
[2019-07-07] MEDS: ZOLOFT PO SCH (09:58)
[2019-07-07 13:47] VITALS: BP 127/72
== END 2019-07-07 15:15 | disposition home or self-care (01) | DRG 205 ==
LOC: ED 04:26 → SUATTDRO 04:26 → 4A 07:51 → 3A 07-04 22:15
PROVIDERS: ADMIT Internal Medicine; ATTEND Internal Medicine
DX: M94.0 Chondrocostal junction syndrome [Tietze] (principal); I50.23 Acute on chronic systolic (congestive) heart failure; I42.9 Cardiomyopathy, unspecified; R45.851 Suicidal ideations; F23 Brief psychotic disorder; I13.0 Hypertensive heart and chronic kidney disease with heart failure and stage 1 through stage 4 chronic kidney disease, or unspecified chronic kidney disease; F17.210 Nicotine dependence, cigarettes, uncomplicated; F32.9 Major depressive disorder, single episode, unspecified; N18.3 Chronic kidney disease, stage 3 (moderate); E11.65 Type 2 diabetes mellitus with hyperglycemia; E11.22 Type 2 diabetes mellitus with diabetic chronic kidney disease; G47.00 Insomnia, unspecified; E87.6 Hypokalemia
CPT/HCPCS: 36415; 71046; 78452; 80048; 80053; 80307; 81001; 82550; 82553; 82962; 84484; 85007; 85025; 85610; 85730; 93005; 93010; 93017; 93306; G0378; A9502; J0360; J1200; J1630; J1644; J1815; J1940; J2270; J2785; J3480